=== PATIENT | male | born 1985 | race Caucasian/White ===

== ENCOUNTER 2016-09-23 07:39 | Emergency (ER) | payer OTHER | END 2016-09-23 07:48 | disposition left against medical advice (07) | LOC: CED 07:39 | DX: M54.2 Cervicalgia (principal); R50.9 Fever, unspecified; Z53.8 Procedure and treatment not carried out for other reasons ==

== ENCOUNTER 2016-10-16 12:56 | Inpatient (IN) | payer MEDICAID, OTHER ==
[2016-10-16] MEDS ORDERED: NS 500 ML IV ONE (13:23)
--- NOTE | 2016-10-16 13:29 | UCPHY ---
H & P Time Seen by Provider: 10/16/16 13:01 Patient Type: New HPI/ROS: HPI Neck and chest swelling. 31-year-old male by private vehicle with his girlfriend. This patient reports a 1 month ago he strained his anterior left-sided neck while bowling. He describes this as the sternocleidomastoid area. He reports that he was very uncomfortable and had a difficult time turning his head. He reports that he saw his primary care physician about this he was placed on a muscle relaxer and got better over the next week or so. He reports that about a week ago he noticed that he was having this vague and mild sensation of swelling in the soft tissues of his mid chest and neck area which seemed to be worse when he was waking up in the morning. He has not had any shortness of breath. He denies any chest pain. Has not had a cough. No voice changes. No airway constriction affects. No fever. No other complaints. ROS: Constitutional: No fever, no chills. No weakness. Eyes: No discharge. No changes in vision. ENT: No sore throat. No nasal congestion or rhinorrhea. Respiratory: No cough. As above. Cardiac: As above, no palpitations. Gastrointestinal: No abdominal pain, no vomiting, no diarrhea. Genitourinary: No hematuria. No dysuria or increased frequency with urination. Musculoskeletal: No back pain. No neck pain. No myalgias or arthralgias. Skin: No rashes. Neurological: No headache. No focal weakness or altered sensation. Past medical history: Denies any significant past medical history. He is not on any prescription medications. Social history: Nonsmoker. Here with his girlfriend. Physical Exam: General Appearance: Alert, he appears anxious. This patient is responding to questions appropriately and in full sentences. This patient appears well- hydrated and well-nourished. Eyes: Pupils equal and round no pallor or injection. No lid edema, erythema or injection. ENT, Mouth: Mucous membranes are moist. The pharyngeal tissues are unremarkable. No edema or swelling. No asymmetry suggestive of abscess. No erythema or exudates. No stridor on auscultation of his neck. No Stridor on auscultation of his neck. Upper airway sounds are clear. Respiratory: There are no retractions, lungs are clear to auscultation with good air movement bilaterally. Cardiovascular: Regular rate and rhythm. No murmur. Chest wall is stable on palpation. There is faint and vague edema involving the lower neck and chest with very faint ecchymosis mid chest/mid sternal region. Neurological: Motor sensory function is grossly intact. Cranial nerves are normal. Gait is normal. Skin: Warm and dry, no rashes. Musculoskeletal: Neck is supple and nontender. Extremities are symmetrical. All joints range without pain or impingement. Psychiatric: No agitation. No depression. Database: EKG: EKG time is 1:33 p.m.; EKG shows a narrow complex normal sinus rhythm with a ventricular rate of 75. The MO, QRS, QT intervals are within normal limits. There are no ST-T wave changes indicative of ischemic or injury pattern. No evidence of right heart strain. Interpreted by me. Imaging: Chest x-ray PA and lateral; Large right-sided upper mediastinal mass. Discussed with staff radiologist Dr. Frankie Good. He recommend CT imaging of the head and neck. CT scan of head and neck with IV contrast; significant for large right-sided mediastinal mass with cardiophrenic lymph nodes in cervical lymph nodes. The left IJ is thrombosed from the skull base to the mediastinum. Results were discussed with staff radiologist Dr. Frankie Good. Procedures: Emergency department course: IV placed. He was placed on a monitor. He was started on IV normal saline with 500 cc to be given over the next hour. His vital signs been reviewed. He is moderately hypertensive. Afebrile. Vital signs otherwise unremarkable. 2:30 p.m., patient re-evaluated. Resting comfortably at this time. Results of chest x-ray and blood work discussed with him. Differential diagnosis reviewed. Discussed possible lymphoma. He consented for CT angiogram of his head and neck. 3:15 p.m., discussed case with on-call hospitalist Dr. Finn Christy. He accepts the patient for admission. 3:30 p.m., spoke with oncologist Dr. Ele Tinsley. Case discussed in detail. Regarding the thrombosis of the left internal jugular vein, I discussed anticoagulation with her. She is in agreement with this. Patient will be started on a heparin drip here at the [facility]. 3:35 p.m., discussed case with hospitalist Dr. Finn Christy. Results of CT scan discussed in detail with him. Need for anticoagulation discussed. He is in agreement. He still feels the patient is is okay to go to [address] [place] [address]. 3:50 p.m., patient re-evaluated. He is with his mother and girlfriend at this time. Results of CT scan discussed with all of them. Need for anticoagulation discussed. Plan for transfer to [address] [place] [address] at [facility] discussed. All of their questions were answered. The patient was transferred in stable condition. His remaining emergency department course under my care has been uneventful. Differential Diagnosis: The differential diagnosis on this patient includes but is not limited to superior vena cava syndrome, thromboembolic condition, Pancoast tumor/malignancy , lymphoma. This represents a partial list of diagnoses considered. These considerations are based on history, physical exam, past history, reassessment and diagnostic testing. Smoking Status: Never smoked Constitutional: Initial Vital Signs Temperature (C) 37.0 C 10/16/16 13:07 Heart Rate 82 10/16/16 13:07 Respiratory Rate 18 10/16/16 13:07 Blood Pressure 157/81 H 10/16/16 13:07 O2 Sat (%) 97 10/16/16 13:07 O2 Delivery Mode Room Air Allergies/Adverse Reactions: No Known Allergies Allergy (Unverified 10/16/16 13:07) Home Medications: Medication Instructions Recorded NK [No Known Home Meds] 10/16/16 Medical Decision Making - Data Points Laboratory Results: Laboratory Results 10/16/16 13:40 10/16/16 13:40 Medications Given: Discontinued Medications Allopurinol (Allopurinol) 300 mg PO ONCE ONE Stop: 10/16/16 18:16 Last Admin: 10/16/16 18:45 Dose: 300 mg Heparin Sodium (Porcine) (Heparin Injection) 0 unit IVP EDNOW ONE PRN Reason: Protocol Stop: 10/16/16 15:43 Last Admin: 10/16/16 16:15 Dose: 4,300 ml Heparin Sodium (Porcine) (Heparin Injection) 0 unit IVP ONCE ONE PRN Reason: Protocol Stop: 10/16/16 17:42 Last Admin: 10/16/16 18:44 Dose: Not Given Sodium Chloride (Ns) 500 mls @ 0 mls/hr IV ONCE ONE PRN Reason: As Directed Stop: 10/16/16 13:24 Last Admin: 10/16/16 13:40 Dose: 500 mls Heparin Sodium (Porcine) (Heparin 50 Units/Ml (Premix)) 500 mls @ 0 mls/hr IV EDNOW ONE; Per Protocol PRN Reason: Protocol Stop: 10/16/16 15:43 Last Admin: 10/16/16 16:17 Dose: 500 mls Allopurinol 300 mg/ Sodium (Chloride) 68 mls @ 136 mls/hr IV DAILY DANNIELLE Stop: 04/14/17 17:59 Last Admin: 10/16/16 19:36 Dose: Not Given Lorazepam (Ativan Injection) 0.5 mg IVP EDNOW ONE Stop: 10/16/16 14:32 Last Admin: 10/16/16 14:53 Dose: 0.5 mg Departure - Departure Disposition: [facility] Acute Clinical Impression: Neck swelling, Lymphoma, Thrombosis of left internal jugular vein Condition: Fair - PQRS PQRS Measurement: Not applicable.
--- NOTE | 2016-10-16 13:34 | CPEKG ---
Heart Rate: 75 RR Interval: 800 P-R Interval: 140 QRSD Interval: 86 QT Interval: 392 QTC Interval: 438 P [place]: 68 QRS [place]: 61 T Wave [place]: 54 EKG Severity - BORDERLINE ECG - EKG Impression: SINUS RHYTHM EKG Impression: LVH BY VOLTAGE Electronically Signed By: Kaitlynn Roman 16-Oct-2016 13:48:50
[2016-10-16 13:44] LABS: % IMMATURE GRANULYOCYTES 0.4 % (0.0-1.1); ABSOLUTE IMMATURE GRANULOCYTES 0.02 10^3/uL (0.00-0.10); ADD DIFF? NO; ADD MORPH? NO; ADD SCAN? NO; ATYPICAL LYMPHOCYTE FLAG 10 (0-99); FRAGMENT RBC FLAG 0 (0-99); HEMOGLOBIN 13.5 g/dL (13.7-17.5); LEFT SHIFT FLG 0 (0-99); LIPEMIA HEMOLYSIS FLAG 80 (0-99); MEAN CELL HEMOGLOBIN 29.8 pg (27.9-34.1); MEAN CELL HEMOGLOBIN CONCENTR. 32.9 g/dL (32.4-36.7); MEAN CELL VOLUME 90.5 fL (81.5-99.8); MEAN PLATELET VOLUME 8.5 fL (8.7-11.7); PLATELET CLUMPS FLAG 0 (0-99); PLATELET COUNT 479 10^3/uL (150-400); RED BLOOD CELL COUNT 4.53 10^6/uL (4.40-6.38); RED CELL DISTRIBUTION WIDTH 12.7 % (11.5-15.2)
[2016-10-16 14:03] LABS: ANION GAP 10 mEq/L (8-16); CALCIUM 9.5 mg/dL (8.5-10.4); CARBON DIOXIDE 28 mEq/l (22-31); CHLORIDE 104 mEq/L (97-110); CREATININE 0.7 mg/dL (0.7-1.3); GLOMERULAR FILTRATION RATE > 60; GLUCOSE 125 mg/dL (70-100); POTASSIUM 4.5 mEq/L (3.5-5.2); SODIUM 142 mEq/L (134-144)
--- NOTE | 2016-10-16 14:03 | DX ---
PA and lateral chest - October 16, 2016 History: 31-year-old with chest pain. Comparison: Acromioclavicular joints July 19, 2009. Findings: There is a new large right mediastinal mass. Azygous fissure is noted. There is no pneumoth orax or pleural effusion. Heart size is normal. The bones are normal. Impression: Large mediastinal mass, which could represent lymphoma, teratoma, or other etiology. CT c hest with contrast is recommended for further evaluation. Findings discussed with Dr. Kaitlynn Roman, on October 16, 2016 at 1356 hours.
[2016-10-16] MEDS ORDERED: IOPAMIDOL (ISOVUE-370) 150 ML BTL IV ONE (14:18)
[2016-10-16] MEDS ORDERED: LORazepam 2 MG/ML INJ IVP ONE (14:31)
--- NOTE | 2016-10-16 15:20 | CT ---
CT Pulmonary Angiogram History: Chest mass on radiographs earlier today. Comparison: CT angio neck same day, PA and lateral chest October 16, 2016 at 1341 hours. Technique: Axial contrast-enhanced images were obtained through the chest following the uneventful in travenous administration of 75 mL Isovue-370. Creatinine is 0.7. Multiplanar reformations were perfo rmed through the pulmonary arteries. Dose reduction techniques were utilized. Findings: Assessment of segmental and subsegmental pulmonary arteries is limited by respiratory lor on and bolus timing. There is no visible central pulmonary embolus. There is significant narrowing of the right main pulmonary arteries. There is mass effect from the large anterior mediastinal mass. A trace right pleural effusion is present. There is mild dependent atelectasis. Azygos fissure is noted . There is a heterogeneous 11.8 x 8.9 x 10.9 cm (transverse x craniocaudal) anterior mediastinal mass causing significant mass effect, with central areas of low attenuation suggesting necrosis. An enlar ged 1.5 x 1.4 cm right cardiophrenic lymph node is present (series 2 image 175), with an adjacent mil dly enlarged lymph node and numerous mildly prominent non-pathologically enlarged axillary nodes. The left internal jugular vein is thrombosed. There is limited assessment of the brachiocephalic vein du e to bolus timing and mass effect, with probable thrombosis. Narrowing of the right internal jugular vein is present, with limited contrast opacification of the SVC, likely related to mass effect, with collateral flow via the azygos vein. The aorta is displaced posteriorly, with normal caliber, without dissection. Heart size is upper normal. No aggressive osseous lesions are identified. Visualized str uctures in the upper abdomen are normal. There is subcutaneous edema in the anterior neck and chest. Impression: 1. Large anterior mediastinal mass with central necrosis, most likely related to lymphoma or less lik sulaiman teratoma or thymoma. 2. Pathologically enlarged right cardiophrenic lymph node with scattered additional mildly prominent lymph nodes, suspicious for malignancy 3. Thrombosis of the left internal jugular vein and possible thrombosis of the brachiocephalic vein, which is incompletely visualized due to bolus timing. 4. Severe narrowing of the SVC and probable narrowing of the right subclavian vein. 5. Tiny right pleural effusion. 6. Additional findings as above. Findings discussed with Dr. Kaitlynn Roman, on October 16, 2016 at 1522 hours.
--- NOTE | 2016-10-16 15:30 | CT ---
CT Angiogram Neck History: Chest mass. Comparison: CT angiogram chest same day, PA and lateral chest same day at 1341 hours. Technique: Axial contrast-enhanced images were obtained from the skull base through the thoracic inle t following the uneventful intravenous administration of 75 mL Isovue-370. Multiplanar reformations were performed. Dose reduction techniques were utilized. Findings: There is incomplete visualization of a large anterior mediastinal mass. This causes posteri or displacement of the aortic arch and great vessels. The visible aorta is normal caliber with conven tional three-vessel arch anatomy. The common and internal carotid arteries and vertebral arteries are widely patent with no significant atherosclerosis. The left internal jugular vein is thrombosed thro ughout its visualized length, with thrombus extending superiorly to the sigmoid sinus. The brachiocep halic vein is poorly assessed due to bolus timing. There is narrowing of the SVC, secondary to the ma ss, with dilatation of the right internal jugular vein centrally, without appreciable thrombus. The c entral right subclavian vein appears narrowed. Mild subcutaneous edema is present in the anterior nec k. Numerous mildly prominent cervical lymph nodes are present, suboptimally assessed due to edema and bolus timing. No aggressive osseous lesions are present. Impression: 1. Large anterior superior mediastinal mass suspicious for lymphoma, better characterized with CT nani st from the same day. 2. Thrombosis of the left external jugular vein from the sigmoid sinus to the thoracic inlet with fonseca ited assessment of the brachiocephalic vein due to bolus timing. 3. Numerous mildly prominent cervical lymph nodes. 4. Narrowing of the SVC and right subclavian vein by the superior mediastinal mass. 5. Additional findings as above. Stenoses are calculated using [place] Symptomatic Carotid Endarterectomy Trial (NASCET) criter ia. Findings discussed with Dr. Kaitlynn Roman, on October 16, 2016 at 1522 hours.
[2016-10-16] MEDS ORDERED: HEPARIN/DEXTROSE 500 ML IV ONE (15:42)
[2016-10-16] MEDS ORDERED: HEPARIN 10,000 UNIT/10 ML MDV IVP ONE ×2 (15:42→17:41)
[2016-10-16] MEDS ORDERED: ONDANSETRON DISINTEGRATING 4 MG TAB PO PRN (17:21)
[2016-10-16] MEDS ORDERED: ONDANSETRON 4 MG/2 ML VIAL IVP PRN (17:21)
[2016-10-16] MEDS ORDERED: HEPARIN 10,000 UNIT/10 ML MDV IVP PRN (17:41)
[2016-10-16] MEDS ORDERED: NS IV SCH (18:00)
[2016-10-16] MEDS ORDERED: HEPARIN/DEXTROSE 500 ML IV SCH (18:00)
[2016-10-16] MEDS ORDERED: ALLOPURINOL IV SCH (18:00)
[2016-10-16 18:02] LABS: % IMMATURE GRANULYOCYTES 0.1 % (0.0-1.1); ABSOLUTE IMMATURE GRANULOCYTES 0.01 10^3/uL (0.00-0.10); ADD DIFF? NO; ADD MORPH? NO; ADD SCAN? NO; ATYPICAL LYMPHOCYTE FLAG 0 (0-99); FRAGMENT RBC FLAG 0 (0-99); HEMOGLOBIN 13.7 g/dL (13.7-17.5); LEFT SHIFT FLG 0 (0-99); LIPEMIA HEMOLYSIS FLAG 80 (0-99); MEAN CELL HEMOGLOBIN 29.7 pg (27.9-34.1); MEAN CELL HEMOGLOBIN CONCENTR. 32.6 g/dL (32.4-36.7); MEAN CELL VOLUME 91.1 fL (81.5-99.8); MEAN PLATELET VOLUME 8.6 fL (8.7-11.7); PLATELET CLUMPS FLAG 0 (0-99); PLATELET COUNT 466 10^3/uL (150-400); RED BLOOD CELL COUNT 4.61 10^6/uL (4.40-6.38); RED CELL DISTRIBUTION WIDTH 12.7 % (11.5-15.2)
[2016-10-16] MEDS ORDERED: ZOLPIDEM TARTRATE 5 MG TAB PO PRN (18:12)
[2016-10-16] MEDS ORDERED: ALLOPURINOL 300 MG TAB PO ONE (18:15)
[2016-10-16 18:19] LABS: BILIRUBIN,TOTAL 0.5 mg/dL (0.1-1.4); BILIRUBIN-CONJUGATED 0.4 mg/dL (0.0-0.5); BILIRUBIN-UNCONJUGATED 0.1 mg/dL (0.0-1.1); TOTAL PROTEIN 7.2 g/dL (6.3-8.2); URIC ACID 4.4 mg/dL (3.5-8.5)
[2016-10-16 18:23] LABS: INR 1.09 (0.83-1.16)
[2016-10-16 18:24] LABS: APTT 33.4 SEC (23.0-38.0); FIBRINOGEN 388 mg/dL (214-456)
[2016-10-16 18:36] LABS: PLATELET COUNT 466 10^3/uL (150-400)
[2016-10-16] MEDS: NS 1,000 ML IV SCH (18:46)
[2016-10-16] MEDS: DEXAMETHASONE 4 MG/ML VIAL IVP SCH ×2 (18:57→23:03)
--- NOTE | 2016-10-16 19:16 | GHP ---
[f rep st] HISTORY AND PHYSICAL DATE OF ADMISSION: 10/16/2016 DATE OF EVALUATION: 10/16/2016 CHIEF COMPLAINT: Discoloration/bruising on the chest and recent neck discomfort. HISTORY OF PRESENT ILLNESS: A 31-year-old male with no significant past medical history, who presents after noting some discoloration on the surface of his chest and underlying chest pressure extending from the subcostal area up into his mid-chest. The patient reports having a pressure sensation over the course of the preceding week intermittently. Of note, patient had presented to an outside physician twice in the 2 months preceding this presentation, once with what he felt to be anxiety attack related to the anniversary of his mother' s , and then another presentation with left-sided neck pain which then resolved and then he developed right-sided neck pain. The patient presented today and is reporting new bruising discoloration midsternal with this pressure. Denies any associated shortness of breath with this. Denies any sensation of difficulty swallowing or wheezing. The patient reported an isolated fever that was noted when he was being evaluated for his neck pain, but he reports that that has resolved. He does report intermittent night sweats. Patient does note some swelling of his face at the time of his presentation today and does report that he believes his voice sounds a little bit deeper than it typically does. The patient denies any upper extremity or lower extremity swelling. Denies any dizziness, palpitations, abdominal discomfort, nausea, vomiting, changes in his bowel habits, hematuria, dysuria, or any rashes. PAST MEDICAL HISTORY: None. SOCIAL HISTORY: Negative for tobacco. Intermittent alcohol. No illicit drugs or marijuana. FAMILY HISTORY: Mother 5 years ago from breast cancer. REVIEW OF SYSTEMS: A 10-point review of systems is negative with the exception of that reported in the HPI. PHYSICAL EXAMINATION: VITAL SIGNS: Blood pressure 147/86, heart rate 112, respiratory rate 16, 94% on room air, temperature 37.3. GENERAL: This is a young-appearing male who is anxious, sitting in bed. HEENT: Notable for some swelling of the neck which appear symmetric, as well as periorbital erythema which the patient reports is new. Oropharynx: Tongue is midline. Eyes are anicteric. CARDIAC: Patient is regular rate and rhythm. No murmurs, gallops, or rubs are appreciated. PULMONARY: Good respiratory effort. Clear to auscultation bilaterally. GASTROINTESTINAL: Positive bowel sounds. The abdomen is soft and nontender to palpation in all 4 quadrants. MUSCULOSKELETAL : Negative for any lower extremity edema. LYMPHATICS: No appreciable supraclavicular or axillary lymph nodes are appreciated. NEUROLOGIC: The patient is alert and oriented x3. PSYCHIATRIC: He is quite nervous on interview and examination. DATA: White count is 5.4, hematocrit 41.0 platelet count of 479. D-dimer is 1.67. Sodium 142, creatinine 0.7, glucose is 125, calcium is 9.5. CTA of the chest, which I personally reviewed and interpreted, shows a large anterior mediastinal mass measured by Radiology at 11 x 10 cm. They do note enlarged cardiophrenic lymph nodes. Thrombosis of the left internal jugular is noted with severe narrowing of the SVC. ASSESSMENT AND PLAN: This is a 31-year-old male presenting with complaints of bruising of the anterior chest and chest pressure, found to have a new mediastinal mass. 1. Acute large mediastinal mass, most suspicious for rapidly progressing lymphoma. Have consulted both Oncology as well as Interventional Radiology to initiate diagnostic and treatment plan. Send a battery of labs for the initial laboratory workup for a diagnosis of this mass. Have discuss with IR and will plan for biopsy in am. patient NPO after midnight and nursing with instructions for holding heparin gtt two hours prior to biopsy. 2. Acute Internal jugular vein thrombosis - suspect 2/2 to underlying malignancy - heparin gtt with bolus started upon diagnosis. 3. 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 The patient has been initiated on a heparin drip. After discussion with Oncology, we will begin with anticoagulation, a transthoracic echo, and monitor the patient closely. If he has progression of symptoms, then we will move toward more aggressive intravascular intervention- which has also been reviewed with IR. Oncology optimistic that we can initiate treatment quickly enough after biopsy that we may be able to avoid this type of intervention. 3. Anxiety. The patient is quite anxious, obviously, secondary to this new diagnosis and the rapidity of his admission and initiation of care. Will treat as needed with benzodiazepine. 4. Diet. Keep the patient NPO until General Surgery has evaluated and we have a diagnostic plan, which most certainly will require invasive biopsy. 5. Prophylaxis. Patient is on heparin drip. DISPOSITION: Greater than 2 midnights, as the patient is requiring rapid diagnostic evaluation of this mediastinum mass and initiation of his oncologic plan. I have discussed the case with Dr. Tinsley from Oncology and IR - we will initiate anticoagulation and plan for biopsy in am. /[id number]/MODL MTDD
--- NOTE | 2016-10-16 20:07 | GCON ---
[f rep st] CONSULTATION REFERRING PHYSICIAN: Pat Salmon MD REASON FOR CONSULTATION: A 31-year-old gentleman with newly diagnosed large anterior mediastinal mas s. HISTORY OF PRESENT ILLNESS: The patient is a 31-year-old gentleman in relatively good health up unti l about 2 months ago, when he started to experience pain with deep inspirations. This was in mid Aug and he sought the attention of his PCP. It was thought that due to it being the anniversary of his mother's , this was anxiety-related. Although antianxiety medications did not help much, t his pain eventually went away. A few weeks later, about the first or second week in September, patient went bowling and the next day he woke up with excruciating left neck pain and swelling. He states t hat he also eventually felt right neck pain and again, sought the attention of a primary care provide r and thought it was a neck strain. He denies any obvious swelling at that time. Over the past week or so he reports increased bilateral neck swelling, and a sense of fullness or pressure in the cente r of his chest. He denies any bone pain. Yesterday, he reported a discoloration or bruising on the anterior chest that he did not see before, and he states he can feel a mass under his sternum. Patient denies any weight loss, but he does report about a week worth of night sweats. He also repor ts a fever of 102 that went away on its own. He denies any significant shortness of breath. Current ly, he denies stridor or wheezing. He denies any issues with swallowing or voice hoarseness. His gi rlfriend states that she has noted some redness around his eyes that was not present before. Patient denies any abdominal pain, nausea, vomiting, hemoptysis, lower extremity edema, or neurologic change s. He presented to the emergency room today. Labs were relatively unremarkable with a white blood c ell count of 5.4, hemoglobin 13.5, MCV of 92, platelet count of 479. His D-dimer was 1.67. CMP was l argely unremarkable. Calcium 9.4. Potassium normal at 4.5. Unfortunately, a CTA chest was done santos t showed a large anterior mediastinal mass with central necrosis, pathologically enlarged right cardi ophrenic lymph node with scattered additional mildly prominent lymph nodes. He also was identified a s having a thrombosis in the left internal jugular vein and possible thrombosis of the brachiocephali c vein, which was incompletely visualized due to bolus timing. He has noticeably severe narrowing of SVC and probable narrowing of the right subclavian vein. A tiny right pleural effusion was noted. Patient has been admitted for further workup and evaluation. REVIEW OF SYSTEMS: As per HPI otherwise, 14-point review of systems is negative. PAST MEDICAL HISTORY: None, other than ACL repair. No significant anxiety. FAMILY HISTORY: Mother of breast cancer 5 years ago. Otherwise negative. MEDICATIONS: Takes no known medications on a scheduled basis. SOCIAL HISTORY: No significant alcohol, tobacco or drugs. He has a girlfriend. He lives in the [facility]. ALLERGIES: He has no known drug allergies. PHYSICAL EXAM: VITAL SIGNS: Blood pressure 147/86, pulse of 112 was previously 75, O2 sat 94% on ro om air. He has a temperature of 37.6. GENERAL: He is a young gentleman, not in acute distress, rosendo rt and oriented, is obviously anxious. HEENT: Has some periorbital erythema, but no proptosis. No plethora. NECK: Subtly enlarged bilaterally, but no large internal jugular vein on my exam. Althou gh neck is swollen, I do not feel any palpable obvious anterior cervical lymph nodes. HEART: Tachyc ardic. Do feel like I heard a very soft grade 1 systolic murmur. No obvious rub. CHEST: Clear to auscultation bilaterally. Anterior chest shows some ecchymosis anteriorly right above the sternal jasper ne. ABDOMEN: Soft, nontender. Bowel sounds positive. No enlarged spleen or liver. LOWER EXTREMIT IES: No edema. NEUROLOGIC: Nonfocal. A and O x3. Moving all extremities. LABS AND DATA: As mentioned above. ASSESSMENT AND PLAN: This is a 31-year-old gentleman, admitted with a large anterior mediastinal mas s, also noted to have severe narrowing of the superior vena cava by imaging, as well as acute thrombo sis of left internal jugular vein, and possible thrombosis of brachiocephalic vein. 1. Large anterior mediastinal mass: Will discuss with Surgery to see if they can obtain a biopsy sa cabrera. Options would include a CT-guided biopsy or endobronchial biopsy given location and closest to the airway. Differential diagnosis includes lymphoma, possibly primary mediastinal B-cell lymphoma or Hodgkin lymphoma, or other. Germ cell tumor and thymoma less likely, although checking tumor alyce ers. 2. 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 Evidence-based guidelines for management of SVC syndrome are not available. In the past, SVC synd maritza was considered potentially a life-threatening medical emergency requiring immediate radiation th erapy; however, emergency RT is no longer considered necessary for most patients for several reasons. Current management stresses the importance of accurate histologic diagnosis prior to starting thera py and upfront use of endovenous stents in severely symptomatic patients to provide more rapid relief than can be achieved using RT. Patient has no evidence of stridor due to central airway obstruction or severe laryngeal edema. At this time, I think it is most important to obtain a diagnosis. I melisa l plan on starting him on some steroids given the high likelihood this is lymphoma and possibly relie ve some of his obstructive symptoms. I have discussed with patient and other and internal Medicine t hat if patient has any acute changes, we would need to discuss endovascular stenting emergently. 3. Acute deep venous thrombosis: Obstruction of blood flow through the SVC slows venous return. Th is can result in local irritation or thrombosis in veins of the upper extremities, which he has evide nce of by imaging. Systemic anticoagulation should be strongly considered to limit extension of thro mbus, therefore he has been started on a heparin drip. Will continue to monitor this closely. Due to location, as well as likelihood of lymphoma, I have recommended echocardiogram, as well as oth er labs to include LDH, AFP, beta-hCG, uric acid, DIC panel. Will also check HIV and hepatitis serol ogies. Will start allopurinol, as well as dexamethasone today. Patient will be followed very closel y on telemetry. Will continue to follow this patient along with you daily. /[id number]/MODL
[2016-10-16] MEDS: LORazepam 2 MG/ML INJ IVP PRN (23:02)
[2016-10-17] MEDS: DEXAMETHASONE 4 MG/ML VIAL IVP SCH ×3 (05:12→21:56)
[2016-10-17] MEDS: NS 1,000 ML IV SCH (05:12)
[2016-10-17 06:43] LABS: % IMMATURE GRANULYOCYTES 0.6 % (0.0-1.1); ABSOLUTE IMMATURE GRANULOCYTES 0.03 10^3/uL (0.00-0.10); ADD DIFF? NO; ADD MORPH? NO; ADD SCAN? NO; ATYPICAL LYMPHOCYTE FLAG 0 (0-99); FRAGMENT RBC FLAG 0 (0-99); HEMATOCRIT 40.4 % (40.0-51.0); HEMOGLOBIN 13.4 g/dL (13.7-17.5); LEFT SHIFT FLG 0 (0-99); LIPEMIA HEMOLYSIS FLAG 80 (0-99); MEAN CELL HEMOGLOBIN CONCENTR. 33.2 g/dL (32.4-36.7); MEAN CELL VOLUME 90.6 fL (81.5-99.8); MEAN PLATELET VOLUME 8.7 fL (8.7-11.7); PLATELET CLUMPS FLAG 0 (0-99); PLATELET COUNT 461 10^3/uL (150-400); RED BLOOD CELL COUNT 4.46 10^6/uL (4.40-6.38); RED CELL DISTRIBUTION WIDTH 12.6 % (11.5-15.2)
[2016-10-17 07:02] LABS: ANION GAP 10 mEq/L (8-16); CALCIUM 9.2 mg/dL (8.5-10.4); CARBON DIOXIDE 25 mEq/l (22-31); CHLORIDE 105 mEq/L (97-110); CREATININE 0.6 mg/dL (0.7-1.3); GLOMERULAR FILTRATION RATE > 60; GLUCOSE 125 mg/dL (70-100); POTASSIUM 4.8 mEq/L (3.5-5.2); SODIUM 140 mEq/L (134-144)
[2016-10-17] MEDS ORDERED: ALLOPURINOL IV SCH (09:00)
[2016-10-17] MEDS ORDERED: NS IV SCH (09:00)
[2016-10-17] MEDS ORDERED: FLUMAZENIL 0.5 MG/5 ML MDV IVP ONE (10:33)
[2016-10-17] MEDS ORDERED: NALOXONE HCL 0.4 MG/ML INJ ONE (10:33)
[2016-10-17] MEDS ORDERED: MIDAZOLAM 2 MG/2 ML VIAL ONE (10:33)
[2016-10-17] MEDS ORDERED: fentaNYL 100 MCG/2 ML INJ ONE (10:34)
--- NOTE | 2016-10-17 10:44 | ECHO ---
[id number] + + [address] : : [place] [address] : : [phone] + + Adult Echocardiographic Report + -------+ :Name: MONICA CARVAJAL Aliza Date: 10/17/2016 08:37 AM : : Hospital Admission Number: [id number] Locati on: 381: :: 1985 Gender: Male Height: 71 in : :Age: 31 yrs Race: WH Weight: 160 lb : :Reason For Study: Mediastinal Mass : : BSA: 1.9 meter s2 : :History: No Previous : + -------+ MMode/2D Measurements & Calculations IVSd: 0.74 cm RVDd: 4.4 cm FS: 36.5 % LVOT diam: 2.1 cm LVPWd: 0.98 cm LVIDd: 4.8 cm EDV(Teich): LVOT area: LVIDs: 3.0 cm 105.7 ml 3.6 cm2 ESV(Teich): 35.7 ml EF(Teich): 66.2 % LVLd ap4: 8.4 cm SV(MOD-sp4): EDV(MOD-sp4): 66.0 ml 98.0 ml LVLs ap4: 6.6 cm ESV(MOD-sp4): 32.0 ml EF(MOD-sp4): 67.3 % Normal Measurement Values: + + :LVIDd (3.5-5.7cm) IVSd (0.6-1.1cm) LVPWd (0.6-1.1cm) Aortic Root (2.0-3.7cm)Left Atrium (1.5-4.0cm): :LV Vol(d) (76-115ml) LV Vol(s) (29-48ml) Ejec Fraction (50-65%)PV Mina (0.6- 1.2m/s) TV Mina (0.4-1.0m/s) : :MV E Mina (0.8-1.0m/s)MV A Mina (0.3-1.0m/s)LVOT Mina (0.7-1.2m/s) Asc Ao Mina ( 0.9-1.8m/s) : + + Doppler Measurements & Calculations MV E max mina: MV V2 max: Ao V2 max: LV V1 max: 122.9 cm/sec 129.0 cm/sec 161.5 cm/sec 143.8 cm/sec MV A max mina: MV max PG: Ao max PG: LV V1 max P.8 cm/sec 6.7 mmHg 10.4 mmHg 8.3 mmHg MV E/A: 1.3 MV V2 mean: Ao mean PG: LV V1 mean PG: MV dec time: 103.4 cm/sec 4.3 mmHg 5.1 mmHg 0.20 sec MV mean PG: Ao V2 mean: LV V1 mean: 4.5 mmHg 98.9 cm/sec 107.6 cm/sec MV V2 VTI: 29.9 cmAo V2 VTI: 22.7 cm LV V1 VTI: 23.6 cm MVA(VTI): 2.8 cm2 ELVIN(I,D): 3.7 cm2 ELVIN(V,D): 3.2 cm2 SV(LVOT): 84.5 ml PA V2 max: PI end-d mina: RAP systole: 151.1 cm/sec 84.2 cm/sec 10.0 mmHg PA max P.2 mmHg PA V2 mean: 106.8 cm/sec PA mean P.2 mmHg PA V2 VTI: 27.1 cm Left Ventricle The left ventricle is normal in size and function. There is normal left ventricular wall thickness. Ejection Fraction = 60-65%. Right Ventricle The right ventricle is normal in size and function. The right ventricular systolic function is normal. Atria The left atrial size is normal. Right atrial size is normal. A prominent eustachian valve is noted. The interatrial septum is intact with no evidence for an atrial septal defect. Mitral Valve The mitral valve is normal in structure and function. There is no mitral valve stenosis. There is no mitral regurgitation noted. Tricuspid Valve The tricuspid valve is normal in structure and function. There is no tricuspid stenosis. There is trace tricuspid regurgitation. Aortic Valve The aortic valve is normal in structure and function. Cannot exclude aortic valvular vegetation. There is no aortic stenosis. There is no aortic insufficiency. Pulmonic Valve The pulmonic valve is normal in structure and function. Trace pulmonic valvular regurgitation. Great Vessels The aortic root is normal size. Pericardium/Pleural An extra-pericardial mass is suggested. There is a fat pad seen. Conclusion A complete two-dimensional transthoracic echocardiogram was performed (2D, M-mode, Doppler and color flow Doppler). The left ventricle is normal in size and function. Ejection Fraction = 60-65%. There are no regional wall motion abnormalities. A prominent eustachian valve is noted in the RA. The aortic valve leaftets appears mildy calcified at the commissures. Cannot determine aortic valve morphology. There is thickening and prominence of the tricuspid annulus. There is trace tricuspid regurgitation. Trace pulmonic valvular regurgitation. Cannot excluded valvular vegetations or extrinsic cardiac mass. Consider further imaging with SHAHIDA and possibly gated chest chest CT or cardiac MRI. Final Reading Physician: Amelie Mcrae signed on 10/17/2016 10:43 AM Ordering Physician: Pat Salmon Performed By: Nevaeh Inman
--- NOTE | 2016-10-17 10:54 | HOSPPROG ---
Hospitalist Progress Note Assessment/Plan: * large mediastinal mass * probably lymphoma * will be getting biopsy today * left external jugular vein thrombosis * IV heparin * probably could transition to Lovenox on discharge * superior vena cava syndrome * on steroids * not very symptomatic * seems to be improving * endovascular stenting if worsens Subjective: no new complaints. Does feel less swollen Objective: Vital Signs Temp Pulse Resp BP Pulse Ox 37.1 C 108 H 16 125/75 H 91 L 10/17/16 08:00 10/17/16 08:00 10/17/16 08:00 10/17/16 08:00 10/17/16 08:00 Laboratory Results 10/17/16 06:15 10/17/16 06:15 10/16/16 10/17/16 10/18/16 05:59 05:59 05:59 Intake Total 1350 Balance 1350 PT 14.0 SEC (12.0-15.0) 10/16/16 17:50 INR 1.09 (0.83-1.16) 10/16/16 17:50 - Physical Exam Constitutional: no apparent distress, appears nourished, not in pain Eyes: anicteric sclera, EOMI Ears, Nose, Mouth, Throat: moist mucous membranes, hearing normal, other ( no facial swelling or erythema) Cardiovascular: regular rate and rhythym Respiratory: no respiratory distress Skin: warm Neurologic: AAOx3 Psychiatric: interacting appropriately, not anxious, not encephalopathic, thought process linear ICD10 Worksheet Patient Problems: Problems Problem Status Diagnosed Lymphoma Acute Neck swelling Acute Thrombosis of left internal jugular vein Acute
--- NOTE | 2016-10-17 13:46 | POSTOPPROG ---
Post Op Note Date of Operation: 10/17/16 Surgeon: Larry Jeffrey Draw Fire Operator: makenzie HINDS Anesthesiologist: none Anesthesia: IV Sedation (Versed and Fentanyl) Pre-op Diagnosis: Mediastinal mass Post-op Diagnosis: same Indication: Mediastinal mass Procedure: CT guided mediastinal mass. 18 guage core biopsy x5 Findings: No bleed or pneumothorax Inf/Abcess present in the surg proc area at time of surgery?: No Depth: Organ Space (anterior mediastinum) EBL: Minimal Complications: None Drains: Other (None)
--- NOTE | 2016-10-17 14:40 | CT ---
CT-guided Mediastinal Mass Biopsy Indication: Large anterior mediastinal mass. Consent: The procedure, risks and benefits were discussed with the patient. He agreed to proceed and signed a consent form. Labwork was reviewed. Patient's heparin drip was suspended 1 hour 30 minutes p rior to the procedure. PQRS Cross-Cutting Measure #226: Current tobacco use: No. Technique: Patient placed supine on the CT table and a limited noncontrast scan was performed with a grid placed along the right paramedian anterior chest wall. A right parasternal anterior to posterior trajectory was selected near the right second costochondral cartilage medial to the internal mammary artery. The skin was cleansed with chlorhexidine and sterilely draped. Conscious sedation was initia gal. The skin and deep soft tissues were anesthetized with 1% lidocaine. Utilizing intermittent CT gu idance, a 17-gauge coaxial Bard needle was advanced into the anterior aspect of the mass. Five 18-gau ge spring-loaded core samples were subsequently acquired with the Bard spring-loaded system. Three we re submitted in formalin and two were submitted in Vel's solution for cytology. The needle was remov ed and a limited post biopsy scan was obtained. Patient tolerated the procedure well without immediat e complication. Findings: No pneumothorax or hematoma on postbiopsy imaging. Sedation: 1 mg of Versed and 75 mcg of fentanyl. Start time: 11:44 a.m. Procedure end time: 12:00 p.m . Specimen: 18-gauge core samples. Three submitted in formalin and two submitted in Vel's solution for cytology. Impression: Successful CT-guided biopsy of anterior mediastinal mass. Plan: Post sedation orders and resume heparin drip.
[2016-10-17] MEDS ORDERED: HEPARIN 10,000 UNIT/10 ML MDV IVP PRN (15:42)
[2016-10-17] MEDS ORDERED: HEPARIN 10,000 UNIT/10 ML MDV IVP ONE (15:42)
[2016-10-17] MEDS ORDERED: HEPARIN/DEXTROSE 500 ML IV SCH (16:00)
--- NOTE | 2016-10-17 16:56 | SOAPPROG ---
SOAP Progress Note Assessment/Plan: Assessment/Plan: 31 yo man w newly dx large anterior mediastinal mass aditted w mild SVC Syndrome Sx 1. 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 SVC narrowing - SVC Sx improving w steroids Clinically improving Cont steroids for now No endovascular stent indicated 3. Acute thromboses - on heparin gtt Likely will need femoral vein PORT given acute DVTs of upper extremities and SVC narrowing D/W Dr Chisholm Updated family at bedside Hope to start chemo soon in next couple days 10/17/16 16:52 10/17/16 16:58 Subjective: No acute events Reports decrease neck swelling Objective: Vital Signs Temp Pulse Resp BP Pulse Ox 36.8 C 90 16 124/78 H 92 10/17/16 14:08 10/17/16 14:08 10/17/16 14:08 10/17/16 14:08 10/17/16 14:08 Laboratory Results 10/17/16 06:15 10/17/16 06:15 10/16/16 10/17/16 10/18/16 05:59 05:59 05:59 Intake Total 1350 Balance 1350 PT 14.0 SEC (12.0-15.0) 10/16/16 17:50 INR 1.09 (0.83-1.16) 10/16/16 17:50 Gen - NAD HEENT - decreased periorbital erythema; decreased neck swelling CV - RRR Resp - CTAB, no stridor Abd - soft, NT, ND, BS+ Ext - no sig edema ICD10 Worksheet Patient Problems: Problems Problem Status Diagnosed Lymphoma Acute Neck swelling Acute Thrombosis of left internal jugular vein Acute
[2016-10-17] MEDS ORDERED: IOPAMIDOL (ISOVUE-300) 100 ML BTL IV ONE (18:32)
--- NOTE | 2016-10-17 19:16 | CT ---
Contrast Enhanced CT Scan of the Abdomen and Pelvis Clinical History: 31-year-old male with a large anterior mediastinal mass suspicious for lymphoma, b iopsied earlier this morning. The patient now presents for staging evaluation of the abdomen and pelv is, although has no specific abdominal complaints. Technique: Following oral contrast, and the uncomplicated intravenous administration of 90 mL of Isov ue 300, a multidetector helical CT scan was obtained from the lung bases inferiorly through the proxi mal femora, with images reformatted at 5.00 and 1.50 mm increments, and reviewed at a variety of wind ow and level settings. Parasagittal and paracoronal reconstructed images are reviewed on the workstat ion. The DFOV is 33.5 cm. Dose reduction techniques were utilized. Comparison Study: Contrast-enhanced CT scan of the chest, which included the upper abdomen, dated 10/16. Findings: Contrast-Enhanced CT Scan of the Abdomen: Again, there is right pericardiophrenic lymphadenopathy (se en on series 4, images 1-10). The lung bases are essentially clear. Trace subsegmental atelectasis at the right costophrenic angle is observed. The visualized cardiac chambers and pericardium are unrema rkable. The liver is upper normal in size with a Bryson's right hepatic lobe measuring 17.6 cm in cep halocaudal diameter. There is no focal hepatic mass. There is no intra or extrahepatic bile duct dila tation. There is some dependent density within the gallbladder which could represent some sludge or m icrolithiasis. Sonography would be more definitive. The gallbladder is partially contracted. The panc reatic contour is normal. The spleen, adrenal glands, and kidneys are normal. There is a 10 mm left p eriaortic retroperitoneal lymph node (on series 3, image 40), and a tiny (subcentimeter) low-density lymph node at the aortocaval space (on series 3, image 41). There is no hepatogastric ligament lympha denopathy, or mesenteric lymphadenopathy. There is no ascites. The CT appearance of small and large b owel is notable for some constipation but no obstruction or regional enterocolitis. The abdominal aor ta and the IVC are normal in caliber. The splenic vein, superior mesenteric vein, and the main portal vein are patent. The osseous structures are age-appropriate, with no lytic or blastic lesion. Contrast-Enhanced CT Scan of the Pelvis: The urinary bladder is moderately distended. The prostate gl and and seminal vesicles are unremarkable. The subcutaneous tissues are normal. There is no retroperi toneal or mesenteric adenopathy. Benign-appearing inguinal lymph nodes contain fatty minerva, and are no t enlarged. There is a normal appearance to the retrocecal appendix (seen on series 4, images 186-201 ). Skeletal System: Normal.. Impression: 1. Bryson's right hepatic lobe variation. 2. Normal-sized spleen. 3. There are a couple of paraaortic lymph nodes which measure at or under 10 mm, and are low-suspicio n. However, there is pathologic pericardiophrenic lymphadenopathy (previously referenced on 10/16/2016) , and a PET/CT scan may be of benefit in further evaluating the distribution of disease. 4. Dependent density in the gallbladder, which could be related to microlithiasis or sludge. Sonograp hy would be more definitive.
[2016-10-17] MEDS: ACETAMINOPHEN 325 MG TAB PO PRN (21:57)
[2016-10-17] MEDS: ALLOPURINOL 300 MG TAB PO SCH (21:57)
[2016-10-17] MEDS: LORazepam 2 MG/ML INJ IVP PRN (23:28)
[2016-10-18] MEDS: DEXAMETHASONE 4 MG/ML VIAL IVP SCH ×3 (05:57→20:58)
[2016-10-18] MEDS ORDERED: SODIUM BICARBONATE 10 MEQ/10 ML SYR IVP ONE (07:16)
[2016-10-18] MEDS ORDERED: BUPIVACAINE 0.5% 30 ML SDV ONE (07:16)
[2016-10-18] MEDS ORDERED: LIDOCAINE 1% 30 ML SDV ONE (07:16)
[2016-10-18] MEDS ORDERED: ceFAZolin 2 GM/DEXTROSE 100 ML IV ONE (07:30)
[2016-10-18] MEDS ORDERED: CEFAZOLIN 2 GM/DEXTROSE/100 ML BAG IV ONE (10:47)
--- NOTE | 2016-10-18 10:51 | SOAPPROG ---
SOAP Progress Note Assessment/Plan: Assessment/Plan: 31 yo man w newly dx large anterior mediastinal mass admitted w mild SVC Syndrome Sx 1. 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 SVC narrowing - SVC Sx cont to improve w steroids Cont steroids for now No endovascular stent indicated at this time 3. Acute thromboses - on heparin gtt Need femoral vein PORT given acute DVTs of upper extremities and SVC narrowing D/W Dr Chisholm Updated family at bedside Hope to start chemo soon in next couple days 10/18/16 10:46 Subjective: No acute events noted Pt continues to feel well on steroids Ct abd/pelvis results noted Objective: Vital Signs Temp Pulse Resp BP Pulse Ox 36.9 C 79 16 112/67 92 10/18/16 07:12 10/18/16 07:12 10/18/16 07:12 10/18/16 07:12 10/18/16 07:12 Laboratory Results 10/18/16 04:35 10/17/16 06:15 10/17/16 10/18/16 10/19/16 05:59 05:59 05:59 Intake Total 1350 Balance 1350 PT 14.0 SEC (12.0-15.0) 10/16/16 17:50 INR 1.09 (0.83-1.16) 10/16/16 17:50 Gen - NAD HEENT - anicteric sclera; periorbital erythema decreased CV - RRR Chest - clear Ext - no edema Neuro - nonfocal ICD10 Worksheet Patient Problems: Problems Problem Status Diagnosed Lymphoma Acute Neck swelling Acute Thrombosis of left internal jugular vein Acute
[2016-10-18] MEDS ORDERED: MIDAZOLAM 2 MG/2 ML VIAL ONE (10:58)
[2016-10-18] MEDS ORDERED: PROPOFOL/EMULSION 500 MG/50 ML BOTTLE IV ONE (11:04)
[2016-10-18] MEDS ORDERED: fentaNYL 100 MCG/2 ML INJ ONE ×2 (11:08→12:14)
[2016-10-18 13:52] LABS: HEPATITIS Bs Ab QUANT <5.0 mIU/mL (())
--- NOTE | 2016-10-18 14:18 | DX ---
Fluoroscopy Provided for Port Placement, 12:24 PM Indication: Port placement. Fluoroscopy time: 18.1 seconds. Dose: 3.29 mGy. Technique: Two intraoperative spot films. Findings: Fluoroscopy reveals spot image of the right groin and tip of catheter overlying the right p araspinal distribution. Impression: Fluoroscopy provided for port placement.
--- NOTE | 2016-10-18 14:42 | DX ---
Abdomen, Single View at 1:12 PM Indication: Port placement. Comparison: CT abdomen and pelvis performed one day prior. Findings: A right femoral port has been placed. The tip extends superiorly off the margin of the film in the right paraspinal distribution. The hub of the port overlies the right mid pelvis. Bowel patte rn is normal with residual enteric contrast from CT of the abdomen and pelvis performed one day prior . Impression: New right femoral port. The tip extends off the superior margin of the film.
[2016-10-18] MEDS ORDERED: HYDROCODONE/APAP 5/325 TAB PO PRN (14:48)
[2016-10-18] MEDS: NS 1,000 ML IV SCH (14:55)
[2016-10-18] MEDS: ACETAMINOPHEN 325 MG TAB PO PRN (14:55)
[2016-10-18 15:25] LABS: FINAL DIAGNOSIS See Comments (()); MICROSCOPIC DESCRIPTION See Comments (())
--- NOTE | 2016-10-18 15:53 | POSTOPPROG ---
Post Op Note Date of Operation: 10/18/16 Surgeon: Joss Chisholm Anesthesiologist: MARIETTA Anesthesia: GET(General Endotracheal) Pre-op Diagnosis: MEDIASTINAL MASS PROBABLE LYMPHOMA Post-op Diagnosis: SAME Indication: CHEMO ACCESS Procedure: RIGHT FEMORAL PORT PLACEMENT WITH FLUORO AND ULTRASOUND GUIDANCE Findings: GOOD POSITION AND FLOW Inf/Abcess present in the surg proc area at time of surgery?: No Depth: Deep Incisional (Fascial) EBL: Minimal Complications: 0
[2016-10-18] MEDS ORDERED: ENOXAPARIN 80 MG/0.8 ML SYR SC SCH (16:00)
--- NOTE | 2016-10-18 16:15 | HOSPPROG ---
Hospitalist Progress Note Assessment/Plan: * large mediastinal mass * probably lymphoma * s/p biopsy and bone marrow biopsy * therapy may start tomorrow * s/p femoral vein port placement * left external jugular vein thrombosis * switch to lovenox * superior vena cava syndrome * on steroids * not very symptomatic * seems to be improving * endovascular stenting if worsens Subjective: doing ok Objective: Vital Signs Temp Pulse Resp BP Pulse Ox 36.7 C 94 18 111/76 90 L 10/18/16 15:56 10/18/16 15:56 10/18/16 15:56 10/18/16 15:56 10/18/16 15:56 Laboratory Results 10/18/16 04:35 10/17/16 06:15 10/17/16 10/18/16 10/19/16 05:59 05:59 05:59 Intake Total 1350 500 Output Total 5 Balance 1350 495 PT 14.0 SEC (12.0-15.0) 10/16/16 17:50 INR 1.09 (0.83-1.16) 10/16/16 17:50 - Physical Exam Constitutional: no apparent distress, appears nourished, not in pain Eyes: anicteric sclera, EOMI Ears, Nose, Mouth, Throat: moist mucous membranes, hearing normal Cardiovascular: regular rate and rhythym Respiratory: no respiratory distress Skin: warm Neurologic: AAOx3 Psychiatric: interacting appropriately, not anxious, not encephalopathic, thought process linear ICD10 Worksheet Patient Problems: Problems Problem Status Diagnosed Lymphoma Acute Neck swelling Acute Thrombosis of left internal jugular vein Acute
--- NOTE | 2016-10-18 16:40 | GOP ---
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 PROCEDURE PERFORMED: Right femoral port placement with fluoroscopic and ultrasound guidance. FINDINGS: The patient was found with good position and good flow of the port. DESCRIPTION OF PROCEDURE: The patient was taken to the operating room where he received satisfactory general laryngeal mask anesthesia by Dr. Ayala. He was placed in supine position, prepped and draped in usual sterile fashion. Using ultrasound guidance, the femoral vein was identified. It was then cannulated, and a guidewire was passed up the femoral iliac vein high into the vena cava. A subcu pocket was made in the right lower quadrant. Port tubing was passed from that pocket to the entrance site. A dilator was passed over the guidewire , and then the catheter was introduced through the introducer sheath and dilator system which was then removed. Position was confirmed with fluoroscopy. Good backflow was present. The catheter was flushed with heparin and saline. The port was secured to the fascia with 3-0 Vicryl. The pocket was closed with 3-0 Vicryl for the subcu and 4-0 Prolene subcuticular stitch for the skin. The entrance site was closed with a Prolene mattress suture. Both wounds were infiltrated with 0.5% Marcaine. He tolerated the procedure well. Taken to recovery room in good condition. No complications. /[id number]/MODL MTDD
--- NOTE | 2016-10-18 20:55 | GCON ---
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 He has been experiencing some chest pressure and shortness of sanket ath which is improved with steroid therapy. PAST HISTORY: Negative for any major medical problems.. He felt like he was quite healthy until the se symptoms developed. He has had an ACL repair. No other major surgeries or hospitalizations. REVIEW OF SYSTEMS: Negative for any serious major medical problems including diabetes, asthma, heart disease, epilepsy, peptic ulcer disease or any malignancies. FAMILY HISTORY: Positive for breast cancer. MEDICATIONS: None. ALLERGIES: None. PHYSICAL EXAMINATION: GENERAL: Reveals an alert 31-year-old male who is in some discomfort. VITAL SIGNS: He is afebrile. HEAD AND NECK: Reveals no masses or significant adenopathy, and no bruits. CHEST: Clear. CARDIAC: Regular rhythm. ABDOMEN: Soft, without organomegaly or masses. EXTREMIT IES: Reveal full range of motion. Full pulses. NEUROLOGIC: Appears to be physiologic. IMPRESSION: Mediastinal mass. Likely Hodgkin's or lymphoma, possibility of a germ-cell tumor exists ; but apparently his markers were negative for that. 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 PLAN: Femoral venous access port, since placing one in the chest might be difficult with this large mass in the way. Risks and options have been fully discussed with the patient. He wishes to proceed . /[id number]/MODL
[2016-10-18] MEDS: ALLOPURINOL 300 MG TAB PO SCH (20:58)
[2016-10-18] MEDS: LORazepam 2 MG/ML INJ IVP PRN (23:49)
[2016-10-19] MEDS: ENOXAPARIN 80 MG/0.8 ML SYR SC SCH ×2 (05:17→17:55)
[2016-10-19] MEDS: DEXAMETHASONE 4 MG/ML VIAL IVP SCH ×3 (05:17→21:12)
[2016-10-19 06:17] LABS: % IMMATURE GRANULYOCYTES 0.3 % (0.0-1.1); ABSOLUTE IMMATURE GRANULOCYTES 0.03 10^3/uL (0.00-0.10); ADD DIFF? NO; ADD MORPH? NO; ADD SCAN? NO; ATYPICAL LYMPHOCYTE FLAG 0 (0-99); FRAGMENT RBC FLAG 0 (0-99); HEMATOCRIT 37.1 % (40.0-51.0); LEFT SHIFT FLG 0 (0-99); LIPEMIA HEMOLYSIS FLAG 80 (0-99); MEAN CELL HEMOGLOBIN 29.9 pg (27.9-34.1); MEAN CELL HEMOGLOBIN CONCENTR. 32.3 g/dL (32.4-36.7); MEAN CELL VOLUME 92.5 fL (81.5-99.8); MEAN PLATELET VOLUME 8.8 fL (8.7-11.7); PLATELET CLUMPS FLAG 20 (0-99); PLATELET COUNT 357 10^3/uL (150-400); RED BLOOD CELL COUNT 4.01 10^6/uL (4.40-6.38); RED CELL DISTRIBUTION WIDTH 13.2 % (11.5-15.2)
[2016-10-19 06:24] LABS: ALANINE AMINOTRANSFERASE 29 IU/L (21-72); ALBUMIN 3.3 g/dL (3.5-5.0); ALKALINE PHOSPHATASE 65 IU/L (38-126); ANION GAP 7 mEq/L (8-16); ASPARTATE AMINOTRANSFERASE 19 IU/L (17-59); BILIRUBIN,TOTAL 0.3 mg/dL (0.1-1.4); CALCIUM 8.7 mg/dL (8.5-10.4); CARBON DIOXIDE 26 mEq/l (22-31); CHLORIDE 106 mEq/L (97-110); CREATININE 0.8 mg/dL (0.7-1.3); GLOMERULAR FILTRATION RATE > 60; GLUCOSE 107 mg/dL (70-100); POTASSIUM 4.7 mEq/L (3.5-5.2); SODIUM 139 mEq/L (134-144)
--- NOTE | 2016-10-19 09:16 | SOAPPROG ---
SOAP Progress Note Assessment/Plan: Assessment: 31 yo M with large mediastinal mass and SVC syndrome POD#1 s/p L femoral v port placement Chemo to start today Will check wound tomorrow as patient is sleeping Objective: Vital Signs Temp Pulse Resp BP Pulse Ox 37.1 C 60 17 106/63 93 10/19/16 04:00 10/19/16 04:00 10/19/16 04:00 10/19/16 04:00 10/19/16 04:00 Laboratory Results 10/19/16 05:48 10/19/16 05:48 10/18/16 10/19/16 10/20/16 05:59 05:59 05:59 Intake Total 3973 150 Output Total 930 Balance 3043 150 PT 14.0 SEC (12.0-15.0) 10/16/16 17:50 INR 1.09 (0.83-1.16) 10/16/16 17:50 ICD10 Worksheet Patient Problems: Problems Problem Status Diagnosed Lymphoma Acute Neck swelling Acute Thrombosis of left internal jugular vein Acute
[2016-10-19] MEDS: NS 1,000 ML IV SCH (10:48)
[2016-10-19] MEDS ORDERED: LIDOCAINE/PRILOCAINE 1 EACH CRTUBE TP PRN (11:10)
--- NOTE | 2016-10-19 12:03 | HOSPPROG ---
Hospitalist Progress Note Assessment/Plan: large mediastinal mass - s/p CT guided biopsy of mass and BM biopsy * s/p femoral vein port placement * likely lymphoma, to start chemo today left external jugular vein thrombosis * cont lovenox superior vena cava syndrome * on steroids * not very symptomatic * seems to be improving * endovascular stenting if worsens, not indicated at this time full code dispo - cont inpt Subjective: Pt feels well. Neck and facial swelling much improved. No CP or SOB. He is a bit sad, scared about diagnosis and starting chemo, but has good support. No fevers. TOlerating po well. Objective: Vital Signs Temp Pulse Resp BP Pulse Ox 36.5 C 67 16 133/76 H 96 10/19/16 08:00 10/19/16 08:00 10/19/16 08:00 10/19/16 08:00 10/19/16 08:00 Laboratory Results 10/19/16 05:48 10/19/16 05:48 10/18/16 10/19/16 10/20/16 05:59 05:59 05:59 Intake Total 3973 150 Output Total 930 Balance 3043 150 PT 14.0 SEC (12.0-15.0) 10/16/16 17:50 INR 1.09 (0.83-1.16) 10/16/16 17:50 - Physical Exam Constitutional: no apparent distress Eyes: PERRL Ears, Nose, Mouth, Throat: moist mucous membranes Cardiovascular: regular rate and rhythym Respiratory: no respiratory distress, clear to auscultation Gastrointestinal: normoactive bowel sounds, soft, non-tender abdomen Skin: warm Neurologic: AAOx3 Psychiatric: interacting appropriately ICD10 Worksheet Patient Problems: Problems Problem Status Diagnosed Lymphoma Acute Neck swelling Acute Thrombosis of left internal jugular vein Acute
--- NOTE | 2016-10-19 13:26 | SOAPPROG ---
SOAP Progress Note Assessment/Plan: Assessment: 31 yo man w newly dx large anterior mediastinal mass admitted w mild SVC Syndrome Sx 1. 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 In view of the urgent clinical situation and the fact that his clinical picture fits with this diagnosis, we will initiate chemotherapy with dose adjusted R-EPOCH prior to final path availability. Patient sperm banked this AM prior to chemo initiation. Could not get PET/CT in timely manner CT Abd/pelvis 10/17 shows nothing else concerning Will perform Bone marrow bx in OR w Dr Chisholm today before MediPORT placed Echo reviewed, EF ok - no tamponade physiology Uric acid ok, On allopurinol 2. SVC narrowing - SVC Sx cont to improve w steroids Cont steroids for now No endovascular stent indicated at this time 3. Acute thromboses - on heparin gtt R femoral port placed 10/18/16 Family at bedside Plan: Start dose adjusted R-EPOCH today. Orders written. 10/19/16 13:12 Subjective: Face feels less full. He sperm banked this AM. He is anxious to start therapy. Objective: Vital Signs Temp Pulse Resp BP Pulse Ox 36.5 C 67 16 133/76 H 96 10/19/16 08:00 10/19/16 08:00 10/19/16 08:00 10/19/16 08:00 10/19/16 08:00 Laboratory Results 10/19/16 05:48 10/19/16 05:48 10/17/16 10/18/16 10/19/16 23:59 23:59 23:59 Intake Total 300 2273 1850 Output Total 430 500 Balance 300 1843 1350 PT 14.0 SEC (12.0-15.0) 10/16/16 17:50 INR 1.09 (0.83-1.16) 10/16/16 17:50 Physical Exam - Physical Exam General Appearance: alert Neck: other (mild neck swelling) Respiratory: lungs clear Cardiac/Chest: regular rate, rhythm Abdomen: normal bowel sounds, other (port in R lower abdominal wall) Skin: warm/dry Neuro/Psych: normal mood/affect, oriented x 3 ICD10 Worksheet Patient Problems: Problems Problem Status Diagnosed Lymphoma Acute Neck swelling Acute Thrombosis of left internal jugular vein Acute
[2016-10-19] MEDS: LORazepam 2 MG/ML INJ IVP PRN ×2 (13:27→23:37)
[2016-10-19] MEDS ORDERED: ACETAMINOPHEN 325 MG TAB PO ONE (15:00)
[2016-10-19] MEDS ORDERED: FAMOTIDINE 20 MG/NACL 50 ML IV ONE (15:00)
[2016-10-19] MEDS ORDERED: riTUXimab 700 MG in NS 630 ML IV ONE (15:30)
[2016-10-19] MEDS: ACETAMINOPHEN 325 MG TAB PO PRN (16:15)
[2016-10-19] MEDS: predniSONE 20 MG TAB PO SCH ×2 (16:16→23:38)
[2016-10-19] MEDS: predniSONE 5 MG TAB PO SCH ×2 (16:16→23:42)
[2016-10-19] MEDS ORDERED: PALONOSETRON HCL 0.25 MG/5 ML VIAL IVP ONE (18:00)
[2016-10-19] MEDS: ALLOPURINOL 300 MG TAB PO SCH (21:09)
[2016-10-19] MEDS: ETOPOSIDE IV SCH (21:31)
[2016-10-19] MEDS: VINCRISTINE IV SCH (21:31)
[2016-10-19] MEDS: DOXORUBICIN IV SCH (21:31)
[2016-10-19] MEDS: NS IV SCH (21:31)
[2016-10-20] MEDS: ENOXAPARIN 80 MG/0.8 ML SYR SC SCH ×2 (05:18→18:30)
[2016-10-20] MEDS: DEXAMETHASONE 4 MG/ML VIAL IVP SCH ×3 (05:18→21:58)
[2016-10-20 05:27] LABS: % IMMATURE GRANULYOCYTES 0.8 % (0.0-1.1); ABSOLUTE IMMATURE GRANULOCYTES 0.06 10^3/uL (0.00-0.10); ADD DIFF? NO; ADD MORPH? NO; ADD SCAN? NO; ATYPICAL LYMPHOCYTE FLAG 0 (0-99); FRAGMENT RBC FLAG 0 (0-99); HEMATOCRIT 34.1 % (40.0-51.0); HEMOGLOBIN 11.1 g/dL (13.7-17.5); LEFT SHIFT FLG 0 (0-99); LIPEMIA HEMOLYSIS FLAG 80 (0-99); MEAN CELL HEMOGLOBIN 29.6 pg (27.9-34.1); MEAN CELL HEMOGLOBIN CONCENTR. 32.6 g/dL (32.4-36.7); MEAN CELL VOLUME 90.9 fL (81.5-99.8); MEAN PLATELET VOLUME 8.7 fL (8.7-11.7); PLATELET CLUMPS FLAG 20 (0-99); PLATELET COUNT 290 10^3/uL (150-400); RED BLOOD CELL COUNT 3.75 10^6/uL (4.40-6.38); RED CELL DISTRIBUTION WIDTH 13.2 % (11.5-15.2)
[2016-10-20 05:50] LABS: ALANINE AMINOTRANSFERASE 28 IU/L (21-72); ALBUMIN 2.9 g/dL (3.5-5.0); ALKALINE PHOSPHATASE 54 IU/L (38-126); ANION GAP 8 mEq/L (8-16); ASPARTATE AMINOTRANSFERASE 20 IU/L (17-59); BILIRUBIN,TOTAL 0.3 mg/dL (0.1-1.4); CALCIUM 8.3 mg/dL (8.5-10.4); CARBON DIOXIDE 24 mEq/l (22-31); CHLORIDE 107 mEq/L (97-110); CREATININE 0.6 mg/dL (0.7-1.3); GLOMERULAR FILTRATION RATE > 60; GLUCOSE 125 mg/dL (70-100); POTASSIUM 4.5 mEq/L (3.5-5.2); SODIUM 139 mEq/L (134-144); TOTAL PROTEIN 5.5 g/dL (6.3-8.2)
[2016-10-20] MEDS: predniSONE 5 MG TAB PO SCH ×2 (08:54→20:16)
[2016-10-20] MEDS: predniSONE 20 MG TAB PO SCH ×2 (08:54→20:15)
[2016-10-20] MEDS: LORazepam 2 MG/ML INJ IVP PRN ×2 (08:59→21:58)
--- NOTE | 2016-10-20 13:53 | SOAPPROG ---
SOAP Progress Note Assessment/Plan: Assessment: 31 yo man w newly dx large anterior mediastinal mass admitted w mild SVC Syndrome Sx 1. 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 In view of the urgent clinical situation and the fact that his clinical picture fits with this diagnosis, we will initiate chemotherapy with dose adjusted R-EPOCH prior to final path availability. Patient sperm banked this AM prior to chemo initiation. Could not get PET/CT in timely manner CT Abd/pelvis 10/17 shows nothing else concerning Final path on mediastinal mass and bone marrow biopsy is pending. Echo reviewed, EF ok - no tamponade physiology Uric acid ok, On allopurinol No tumor lysis syndrome at this time 2. SVC narrowing - SVC Sx cont to improve w steroids Cont steroids for now No endovascular stent indicated at this time 3. Acute thromboses - on heparin gtt R femoral port placed 10/18/16 Friends at bedside. Plan: Today is C1 D2 DA-R-EPOCH. Continue steroids Continue Heparin Check final path when available Monitor for tumor lysis Subjective: No new complaints. Neck feels the same. No N/V. Objective: Vital Signs Temp Pulse Resp BP Pulse Ox 37 C 68 16 95/60 L 93 10/20/16 11:56 10/20/16 08:30 10/20/16 08:30 10/20/16 08:30 10/20/16 08:30 Laboratory Results 10/20/16 05:17 10/20/16 05:17 10/18/16 10/19/16 10/20/16 23:59 23:59 23:59 Intake Total 2273 6370 350 Output Total 430 2550 Balance 1843 3820 350 PT 14.0 SEC (12.0-15.0) 10/16/16 17:50 INR 1.09 (0.83-1.16) 10/16/16 17:50 Physical Exam - Physical Exam General Appearance: alert, no apparent distress Neck: other (no change in edema) Respiratory: lungs clear, No crackles, No rales, No rhonchi Cardiac/Chest: regular rate, rhythm Abdomen: normal bowel sounds, non-tender Neuro/Psych: no motor/sensory deficits, alert, normal mood/affect, oriented x 3 ICD10 Worksheet Patient Problems: Problems Problem Status Diagnosed Lymphoma Acute Neck swelling Acute Thrombosis of left internal jugular vein Acute
[2016-10-20 14:24] LABS: LACTATE DEHYDROGENASE 625 IU/L (313-618); URIC ACID 1.2 mg/dL (3.5-8.5)
--- NOTE | 2016-10-20 17:52 | HOSPPROG ---
Hospitalist Progress Note Assessment/Plan: large mediastinal mass - s/p CT guided biopsy of mass and BM biopsy, prelim path B cell lymphoma * s/p femoral vein port placement * likely lymphoma, started chemo yesterday per oncology * monitor for tumor lysis left external jugular vein thrombosis * cont lovenox superior vena cava syndrome * on steroids * swelling of neck/face improved * endovascular stenting if worsens, not indicated at this time full code dispo - cont inpt Subjective: Pt is in better spirits today, more positive, but still scared. His mom of breast cancer recently. Denies CP or SOB. No facial or neck swelling. Objective: Vital Signs Temp Pulse Resp BP Pulse Ox 36.6 C 73 16 116/87 H 933 H 10/20/16 16:30 10/20/16 16:30 10/20/16 16:30 10/20/16 16:30 10/20/16 16:30 Laboratory Results 10/20/16 05:17 10/20/16 05:17 10/19/16 10/20/16 10/21/16 05:59 05:59 05:59 Intake Total 3973 5020 Output Total 930 2050 Balance 3043 2970 PT 14.0 SEC (12.0-15.0) 10/16/16 17:50 INR 1.09 (0.83-1.16) 10/16/16 17:50 - Physical Exam Constitutional: no apparent distress Eyes: PERRL Ears, Nose, Mouth, Throat: moist mucous membranes Cardiovascular: regular rate and rhythym Respiratory: no respiratory distress, clear to auscultation Gastrointestinal: normoactive bowel sounds, soft, non-tender abdomen Skin: warm Neurologic: AAOx3 Psychiatric: interacting appropriately ICD10 Worksheet Patient Problems: Problems Problem Status Diagnosed Lymphoma Acute Neck swelling Acute Thrombosis of left internal jugular vein Acute
[2016-10-20] MEDS: ALLOPURINOL 300 MG TAB PO SCH (20:13)
[2016-10-20] MEDS: DOXORUBICIN IV SCH (21:50)
[2016-10-20] MEDS: ETOPOSIDE IV SCH (21:50)
[2016-10-20] MEDS: VINCRISTINE IV SCH (21:50)
[2016-10-20] MEDS: NS IV SCH (21:50)
[2016-10-21] MEDS: NS 1,000 ML IV SCH ×2 (01:00→20:53)
[2016-10-21] MEDS: LORazepam 2 MG/ML INJ IVP PRN ×2 (03:26→21:41)
[2016-10-21] MEDS: DEXAMETHASONE 4 MG/ML VIAL IVP SCH ×3 (05:49→21:42)
[2016-10-21] MEDS: ENOXAPARIN 80 MG/0.8 ML SYR SC SCH ×2 (05:49→18:23)
[2016-10-21 06:31] LABS: % IMMATURE GRANULYOCYTES 0.5 % (0.0-1.1); ABSOLUTE IMMATURE GRANULOCYTES 0.04 10^3/uL (0.00-0.10); ADD DIFF? NO; ADD MORPH? NO; ADD SCAN? NO; ATYPICAL LYMPHOCYTE FLAG 0 (0-99); FRAGMENT RBC FLAG 0 (0-99); HEMATOCRIT 34.4 % (40.0-51.0); HEMOGLOBIN 11.4 g/dL (13.7-17.5); LEFT SHIFT FLG 0 (0-99); LIPEMIA HEMOLYSIS FLAG 80 (0-99); MEAN CELL HEMOGLOBIN 30.3 pg (27.9-34.1); MEAN CELL HEMOGLOBIN CONCENTR. 33.1 g/dL (32.4-36.7); MEAN CELL VOLUME 91.5 fL (81.5-99.8); PLATELET CLUMPS FLAG 0 (0-99); PLATELET COUNT 328 10^3/uL (150-400); RED BLOOD CELL COUNT 3.76 10^6/uL (4.40-6.38); RED CELL DISTRIBUTION WIDTH 13.2 % (11.5-15.2)
[2016-10-21 06:42] LABS: ALANINE AMINOTRANSFERASE 67 IU/L (21-72); ALKALINE PHOSPHATASE 55 IU/L (38-126); ANION GAP 7 mEq/L (8-16); ASPARTATE AMINOTRANSFERASE 58 IU/L (17-59); BILIRUBIN,TOTAL 0.3 mg/dL (0.1-1.4); CALCIUM 8.5 mg/dL (8.5-10.4); CARBON DIOXIDE 26 mEq/l (22-31); CHLORIDE 105 mEq/L (97-110); CREATININE 0.6 mg/dL (0.7-1.3); GLOMERULAR FILTRATION RATE > 60; GLUCOSE 121 mg/dL (70-100); LACTATE DEHYDROGENASE 681 IU/L (313-618); POTASSIUM 4.5 mEq/L (3.5-5.2); SODIUM 138 mEq/L (134-144); TOTAL PROTEIN 5.6 g/dL (6.3-8.2); URIC ACID 1.3 mg/dL (3.5-8.5)
[2016-10-21] MEDS: predniSONE 20 MG TAB PO SCH ×2 (10:02→20:55)
[2016-10-21] MEDS: predniSONE 5 MG TAB PO SCH ×2 (10:03→20:56)
[2016-10-21] MEDS ORDERED: PANTOPRAZOLE SODIUM 40 MG in NS 100 ML IV SCH (10:30)
--- NOTE | 2016-10-21 12:24 | SOAPPROG ---
SOAP Progress Note Assessment/Plan: Assessment: Assessment: 31 yo man w newly dx large anterior mediastinal mass admitted w mild SVC Syndrome Sx 1. 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 Day 3 R epoch Could not get PET/CT in timely manner CT Abd/pelvis 10/17 shows nothing else concerning Final path on mediastinal mass and bone marrow biopsy is pending. Echo reviewed, EF ok - no tamponade physiology Uric acid ok, On allopurinol No tumor lysis syndrome at this time 2. SVC narrowing - SVC Sx cont to improve w steroids Cont steroids for now No endovascular stent indicated at this time 3. Acute thromboses - on heparin gtt R femoral port placed 10/18/16 Friends at bedside. Plan:Continue R epoch, await path will need gcsf post completion chemo 10/21/16 12:20 Subjective: Feels ok Objective: Vital Signs Temp Pulse Resp BP Pulse Ox 97.7 F 70 18 122/79 H 93 10/21/16 08:00 10/21/16 10:16 10/21/16 10:16 10/21/16 10:16 10/21/16 10:16 Laboratory Results 10/21/16 05:51 10/21/16 05:51 10/20/16 10/21/16 10/22/16 05:59 05:59 05:59 Intake Total 5020 5861 Output Total 2050 4100 Balance 2970 1761 PT 14.0 SEC (12.0-15.0) 10/16/16 17:50 INR 1.09 (0.83-1.16) 10/16/16 17:50 Physical Exam - Physical Exam General Appearance: alert, no apparent distress Neck: non-tender Respiratory: lungs clear Cardiac/Chest: regular rate, rhythm Abdomen: normal bowel sounds, non-tender Extremities: swelling (some swelling arms, l greater than r) ICD10 Worksheet Patient Problems: Problems Problem Status Diagnosed Lymphoma Acute Neck swelling Acute Thrombosis of left internal jugular vein Acute
--- NOTE | 2016-10-21 12:46 | SOAPPROG ---
SOAP Progress Note Assessment/Plan: Assessment/plan : 31 yo M with large mediastinal mass and SVC syndrome s/p L femoral v port placement. Port site is clean. Chemo started. No new orders from surgery. S: No pain. O: gen: sleeping but easily arousable, alert, oriented, nad pulm: no wob ext: port site cdi no erythema 10/21/16 12:44 Objective: Vital Signs Temp Pulse Resp BP Pulse Ox 36.6 C 86 18 122/67 H 93 10/21/16 12:00 10/21/16 12:00 10/21/16 12:00 10/21/16 12:00 10/21/16 12:00 Laboratory Results 10/21/16 05:51 10/21/16 05:51 10/20/16 10/21/16 10/22/16 05:59 05:59 05:59 Intake Total 5020 5861 Output Total 2050 4100 Balance 2970 1761 PT 14.0 SEC (12.0-15.0) 10/16/16 17:50 INR 1.09 (0.83-1.16) 10/16/16 17:50 ICD10 Worksheet Patient Problems: Problems Problem Status Diagnosed Lymphoma Acute Neck swelling Acute Thrombosis of left internal jugular vein Acute
[2016-10-21 13:16] LABS: FINAL DIAGNOSIS See Comments (()); MICROSCOPIC DESCRIPTION See Comments (()); SPECIAL STUDIES See Comments (())
--- NOTE | 2016-10-21 15:51 | HOSPPROG ---
Hospitalist Progress Note Assessment/Plan: # large mediastinal mass - s/p CT guided biopsy of mass and BM biopsy- prelim path B cell lymphoma CT chest( personally reviewed and interpreted) large anterior mediastinal mass with compression of the pulmonary arteries s/p femoral vein port placement- with minimal pain - cont chemo per oncology - monitor for tumor lysis # left external jugular vein thrombosis -cont treatment dosed lovenox # superior vena cava syndrome - swelling of neck/face improved as well as periorbital erythema - cont steroids - endovascular stenting if worsens-not indicated at this time # acute normocytic anemia- suspect related to phlebotomy since the patient's arrival- hemoglobin 11 - continue to follow daily on chemotherapy # full code # diet- regular # dispo - >2MN as requiring emergent chemotherapy for large mediastinal mass an SVC syndrome I have discussed the case with Pharm D- we will initiate IV Protonix secondary to high dose prednisone with chemotherapy Subjective: minimal discomfort with femoral port Objective: Vital Signs Temp Pulse Resp BP Pulse Ox 36.6 C 86 18 122/67 H 93 10/21/16 12:00 10/21/16 12:00 10/21/16 12:00 10/21/16 12:00 10/21/16 12:00 Laboratory Results 10/21/16 05:51 10/21/16 05:51 10/20/16 10/21/16 10/22/16 05:59 05:59 05:59 Intake Total 5020 5861 Output Total 2050 4100 1100 Balance 2970 1761 -1100 PT 14.0 SEC (12.0-15.0) 10/16/16 17:50 INR 1.09 (0.83-1.16) 10/16/16 17:50 - Physical Exam Constitutional: appears nourished Eyes: anicteric sclera Ears, Nose, Mouth, Throat: moist mucous membranes Cardiovascular: regular rate and rhythym Respiratory: no respiratory distress, no rales or rhonchi Gastrointestinal: normoactive bowel sounds, soft, non-tender abdomen Genitourinary: no bladder fullness Skin: warm, normal color Musculoskeletal: No asymmetric calves Neurologic: AAOx3 Psychiatric: interacting appropriately, not anxious Lymph, Heme, Immunologic: no cervical LAD ICD10 Worksheet Patient Problems: Problems Problem Status Diagnosed Lymphoma Acute Neck swelling Acute Thrombosis of left internal jugular vein Acute
[2016-10-21] MEDS: ALLOPURINOL 300 MG TAB PO SCH (20:59)
[2016-10-21] MEDS: DOXORUBICIN IV SCH (21:41)
[2016-10-21] MEDS: NS IV SCH (21:41)
[2016-10-21] MEDS: VINCRISTINE IV SCH (21:41)
[2016-10-21] MEDS: ETOPOSIDE IV SCH (21:41)
[2016-10-22 06:53] LABS: HEMOGLOBIN 11.2 g/dL (13.7-17.5); MEAN CELL HEMOGLOBIN 29.7 pg (27.9-34.1); MEAN CELL HEMOGLOBIN CONCENTR. 32.9 g/dL (32.4-36.7); MEAN CELL VOLUME 90.2 fL (81.5-99.8); RED BLOOD CELL COUNT 3.77 10^6/uL (4.40-6.38); RED CELL DISTRIBUTION WIDTH 13.1 % (11.5-15.2)
[2016-10-22 06:57] LABS: ALANINE AMINOTRANSFERASE 79 IU/L (21-72); ALBUMIN 2.9 g/dL (3.5-5.0); ALKALINE PHOSPHATASE 49 IU/L (38-126); ANION GAP 4 mEq/L (8-16); ASPARTATE AMINOTRANSFERASE 41 IU/L (17-59); BILIRUBIN,TOTAL 0.4 mg/dL (0.1-1.4); CALCIUM 8.3 mg/dL (8.5-10.4); CARBON DIOXIDE 29 mEq/l (22-31); CHLORIDE 105 mEq/L (97-110); CREATININE 0.7 mg/dL (0.7-1.3); GLOMERULAR FILTRATION RATE > 60; GLUCOSE 122 mg/dL (70-100); LACTATE DEHYDROGENASE 551 IU/L (313-618); POTASSIUM 4.7 mEq/L (3.5-5.2); SODIUM 138 mEq/L (134-144); TOTAL PROTEIN 5.4 g/dL (6.3-8.2); URIC ACID 1.6 mg/dL (3.5-8.5)
[2016-10-22] MEDS: ENOXAPARIN 80 MG/0.8 ML SYR SC SCH ×2 (08:16→18:38)
[2016-10-22] MEDS: DEXAMETHASONE 4 MG/ML VIAL IVP SCH ×2 (08:16→14:15)
[2016-10-22] MEDS: predniSONE 20 MG TAB PO SCH ×2 (08:50→22:15)
[2016-10-22] MEDS: predniSONE 5 MG TAB PO SCH ×2 (08:51→22:16)
[2016-10-22] MEDS: PANTOPRAZOLE SODIUM 40 MG TAB PO SCH (08:51)
--- NOTE | 2016-10-22 10:10 | SOAPPROG ---
SOAP Progress Note Assessment/Plan: Assessment: Assessment: 31 yo man w newly dx large anterior mediastinal mass admitted w mild SVC Syndrome Sx 1. Mediastinal mass - . Day 4 R epoch Could not get PET/CT in timely manner. Symptoms better, will check cxr tomorrow. 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 SVC narrowing - SVC Sx cont to improve w steroids Cont steroids for now No endovascular stent indicated at this time 3. Acute thromboses - on heparin gtt R femoral port placed 10/18/16, will start to transition to warfarin, cont lovenox for now Friends at bedside. Plan:Continue R epoch, cxr tomorrow 10/21/16 12:20 10/22/16 10:06 10/22/16 11:08 Subjective: Feels ok Objective: Vital Signs Temp Pulse Resp BP Pulse Ox 97.8 F 67 18 116/73 95 10/22/16 08:20 10/22/16 08:20 10/22/16 08:20 10/22/16 08:20 10/22/16 08:20 Laboratory Results 10/22/16 05:37 10/22/16 05:37 10/21/16 10/22/16 10/23/16 05:59 05:59 05:59 Intake Total 5861 2936 Output Total 4100 2100 Balance 1761 836 PT 14.0 SEC (12.0-15.0) 10/16/16 17:50 INR 1.09 (0.83-1.16) 10/16/16 17:50 Physical Exam - Physical Exam General Appearance: no apparent distress EENT: other (decreased swelling face and arms) Cardiac/Chest: regular rate, rhythm Abdomen: normal bowel sounds ICD10 Worksheet Patient Problems: Problems Problem Status Onset Lymphoma Acute Neck swelling Acute Thrombosis of left internal jugular vein Acute
--- NOTE | 2016-10-22 14:00 | HOSPPROG ---
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 - mass - s/p CT guided biopsy of mass and BM biopsy- surgical path B cell lymphoma- BMBx pending CT chest-large anterior mediastinal mass with compression of the pulmonary arteries CXR ( personally reviewed and interpreted) with large mediastinal mass oxygen saturations 91% on RA s/p femoral vein port placement- with minimal pain - cont chemo per oncology - monitor for tumor lysis - repeat CXR in am # left external jugular vein thrombosis -cont treatment dosed lovenox # superior vena cava syndrome - swelling of neck/face improved minimal periorbital erythema today seems to fluctuate - cont steroids - endovascular stenting if worsens # acute normocytic anemia- suspect related to phlebotomy since the patient's arrival- hemoglobin remains 11 today - continue to follow daily on chemotherapy # full code # diet- regular # dispo - >2MN as requiring emergent chemotherapy for large mediastinal mass an SVC syndrome I have discussed the case with Oncology will continue with current course Subjective: groin pain minimal Objective: Vital Signs Temp Pulse Resp BP Pulse Ox 36.7 C 69 18 128/75 H 91 L 10/22/16 12:05 10/22/16 12:05 10/22/16 12:05 10/22/16 12:05 10/22/16 12:05 Laboratory Results 10/22/16 05:37 10/22/16 05:37 10/21/16 10/22/16 10/23/16 05:59 05:59 05:59 Intake Total 5861 2936 Output Total 4100 2100 Balance 1761 836 PT 14.0 SEC (12.0-15.0) 10/16/16 17:50 INR 1.09 (0.83-1.16) 10/16/16 17:50 - Physical Exam Constitutional: no apparent distress Eyes: anicteric sclera Ears, Nose, Mouth, Throat: moist mucous membranes Cardiovascular: regular rate and rhythym Respiratory: no respiratory distress, no rales or rhonchi Gastrointestinal: normoactive bowel sounds, soft, non-tender abdomen Genitourinary: no bladder fullness Skin: warm, normal color Musculoskeletal: No asymmetric calves Neurologic: AAOx3 Psychiatric: interacting appropriately, not anxious Lymph, Heme, Immunologic: no cervical LAD ICD10 Worksheet Patient Problems: Problems Problem Status Onset Lymphoma Acute Neck swelling Acute Thrombosis of left internal jugular vein Acute
[2016-10-22] MEDS: WARFARIN SODIUM 5 MG TAB PO SCH (16:32)
[2016-10-22] MEDS: ALLOPURINOL 300 MG TAB PO SCH (22:15)
[2016-10-22] MEDS: LORazepam 2 MG/ML INJ IVP PRN (22:30)
[2016-10-22] MEDS: DOXORUBICIN IV SCH (23:15)
[2016-10-22] MEDS: VINCRISTINE IV SCH (23:15)
[2016-10-22] MEDS: ETOPOSIDE IV SCH (23:15)
[2016-10-22] MEDS: NS IV SCH (23:15)
[2016-10-23 05:56] LABS: INR 1.12 (0.83-1.16); PROTIME(PATIENT) 14.3 SEC (12.0-15.0)
[2016-10-23 06:10] LABS: ALANINE AMINOTRANSFERASE 68 IU/L (21-72); ALKALINE PHOSPHATASE 50 IU/L (38-126); ANION GAP 6 mEq/L (8-16); ASPARTATE AMINOTRANSFERASE 24 IU/L (17-59); BILIRUBIN,TOTAL 0.4 mg/dL (0.1-1.4); CALCIUM 8.5 mg/dL (8.5-10.4); CARBON DIOXIDE 28 mEq/l (22-31); CHLORIDE 103 mEq/L (97-110); CREATININE 0.6 mg/dL (0.7-1.3); GLOMERULAR FILTRATION RATE > 60; GLUCOSE 117 mg/dL (70-100); LACTATE DEHYDROGENASE 510 IU/L (313-618); SODIUM 137 mEq/L (134-144); TOTAL PROTEIN 5.5 g/dL (6.3-8.2); URIC ACID 1.8 mg/dL (3.5-8.5)
[2016-10-23] MEDS: PANTOPRAZOLE SODIUM 40 MG TAB PO SCH (08:59)
[2016-10-23] MEDS: predniSONE 5 MG TAB PO SCH ×2 (09:00→21:26)
[2016-10-23] MEDS: predniSONE 20 MG TAB PO SCH ×2 (09:00→21:25)
[2016-10-23] MEDS: ENOXAPARIN 80 MG/0.8 ML SYR SC SCH ×2 (09:00→17:02)
--- NOTE | 2016-10-23 09:32 | SOAPPROG ---
SOAP Progress Note Assessment/Plan: Assessment/plan : 31 yo M with large mediastinal mass and SVC syndrome s/p L femoral v port placement. Post op port check: Port site is clean, functioning. Plan for f/u in about 10 days for suture removal and wound check. Instructions added to d/c plan. S: No pain. O: gen: alert, nad port site R groin cdi, no erythema, minimal swelling 10/23/16 09:31 Objective: Vital Signs Temp Pulse Resp BP Pulse Ox 36.6 C 64 14 87/48 L 95 10/23/16 08:00 10/23/16 08:00 10/23/16 08:00 10/23/16 08:00 10/23/16 08:00 Laboratory Results 10/22/16 05:37 10/23/16 05:20 10/22/16 10/23/16 10/24/16 05:59 05:59 05:59 Intake Total 2936 900 Output Total 2100 Balance 836 900 PT 14.3 SEC (12.0-15.0) 10/23/16 05:20 INR 1.12 (0.83-1.16) 10/23/16 05:20 ICD10 Worksheet Patient Problems: Problems Problem Status Onset Lymphoma Acute Neck swelling Acute Thrombosis of left internal jugular vein Acute
--- NOTE | 2016-10-23 12:23 | SOAPPROG ---
SOAP Progress Note Assessment/Plan: Assessment: Assessment: 31 yo man w newly dx large anterior mediastinal mass admitted w mild SVC Syndrome Sx 1. Mediastinal mass - . Day 5 R epoch Could not get PET/CT in timely manner. Symptoms better, cxr is better. 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 SVC narrowing - SVC Sx cont to improve w steroids Cont steroids for now No endovascular stent indicated at this time 3. Acute thromboses - on heparin gtt R femoral port placed 10/18/16, continue warfarin, cont lovenox for now Friends at bedside. Plan:Finish R Epoch, possibly home tomorrow 10/21/16 12:20 10/22/16 10:06 10/22/16 11:08 10/23/16 12:17 Subjective: Feels well Objective: Vital Signs Temp Pulse Resp BP Pulse Ox 98.5 F 69 16 135/82 H 94 10/23/16 12:00 10/23/16 12:00 10/23/16 12:00 10/23/16 12:00 10/23/16 12:00 Laboratory Results 10/22/16 05:37 10/23/16 05:20 10/22/16 10/23/16 10/24/16 05:59 05:59 05:59 Intake Total 2936 900 Output Total 2100 Balance 836 900 PT 14.3 SEC (12.0-15.0) 10/23/16 05:20 INR 1.12 (0.83-1.16) 10/23/16 05:20 Physical Exam - Physical Exam General Appearance: alert, no apparent distress Respiratory: lungs clear Cardiac/Chest: regular rate, rhythm ICD10 Worksheet Patient Problems: Problems Problem Status Onset Lymphoma Acute Neck swelling Acute Thrombosis of left internal jugular vein Acute
--- NOTE | 2016-10-23 15:07 | HOSPPROG ---
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 - mass - s/p CT guided biopsy of mass and BM biopsy- surgical path B cell lymphoma- BMBx pending CT chest-large anterior mediastinal mass with compression of the pulmonary arteries CXR (personally reviewed and interpreted) shows decreased size of mediastinal mass oxygen saturations 91% on RA s/p femoral vein port placement - cont chemo per oncology - cont monitor for tumor lysis - potential dc tomorrow if tolerates chemo overnight # left external jugular vein thrombosis -cont treatment dosed lovenox and warfarin INR 1.2 # superior vena cava syndrome - swelling of neck/face improved minimal periorbital erythema today seems to fluctuate - cont anticoagulation # acute normocytic anemia- suspect related to phlebotomy since the patient's arrival- hemoglobin remains 11.2 today - continue to follow daily on chemotherapy # full code # diet- regular # dispo - >2MN as requiring emergent chemotherapy for large mediastinal mass an SVC syndrome I have discussed the case with Oncology will Potentially DC tomorrow if tolerates chemotherapy will this evening Subjective: feeling better today Objective: Vital Signs Temp Pulse Resp BP Pulse Ox 36.9 C 69 16 135/82 H 94 10/23/16 12:00 10/23/16 12:00 10/23/16 12:00 10/23/16 12:00 10/23/16 12:00 Laboratory Results 10/22/16 05:37 10/23/16 05:20 10/22/16 10/23/16 10/24/16 05:59 05:59 05:59 Intake Total 2936 900 Output Total 2100 Balance 836 900 PT 14.3 SEC (12.0-15.0) 10/23/16 05:20 INR 1.12 (0.83-1.16) 10/23/16 05:20 - Physical Exam Constitutional: appears nourished Eyes: anicteric sclera Ears, Nose, Mouth, Throat: moist mucous membranes Cardiovascular: regular rate and rhythym Respiratory: no respiratory distress, no rales or rhonchi Gastrointestinal: normoactive bowel sounds, soft, non-tender abdomen Genitourinary: no bladder fullness Skin: warm, normal color Musculoskeletal: No asymmetric calves Neurologic: AAOx3 Psychiatric: interacting appropriately, not anxious Lymph, Heme, Immunologic: no cervical LAD ICD10 Worksheet Patient Problems: Problems Problem Status Onset Lymphoma Acute Neck swelling Acute Thrombosis of left internal jugular vein Acute
[2016-10-23 16:45] VITALS: RESP 18
[2016-10-23] MEDS: WARFARIN SODIUM 5 MG TAB PO SCH (17:03)
[2016-10-23] MEDS ORDERED: CYCLOPHOSPHAMIDE IV ONE (18:30)
[2016-10-23] MEDS ORDERED: NS IV ONE (18:30)
[2016-10-23] MEDS: ALLOPURINOL 300 MG TAB PO SCH (21:26)
[2016-10-23] MEDS: LORazepam 2 MG/ML INJ IVP PRN (21:49)
[2016-10-24] MEDS ORDERED: FILGRASTIM-SNDZ 300 MCG/0.5 ML SYR SC SCH
[2016-10-24] MEDS: ENOXAPARIN 80 MG/0.8 ML SYR SC SCH (05:52)
[2016-10-24 06:03] LABS: HEMATOCRIT 35.1 % (40.0-51.0); HEMOGLOBIN 11.9 g/dL (13.7-17.5); MEAN CELL HEMOGLOBIN 30.1 pg (27.9-34.1); MEAN CELL HEMOGLOBIN CONCENTR. 33.9 g/dL (32.4-36.7); MEAN CELL VOLUME 88.6 fL (81.5-99.8); RED BLOOD CELL COUNT 3.96 10^6/uL (4.40-6.38); RED CELL DISTRIBUTION WIDTH 12.6 % (11.5-15.2)
[2016-10-24 06:40] LABS: ALANINE AMINOTRANSFERASE 64 IU/L (21-72); ALBUMIN 2.9 g/dL (3.5-5.0); ALKALINE PHOSPHATASE 50 IU/L (38-126); ANION GAP 7 mEq/L (8-16); ASPARTATE AMINOTRANSFERASE 20 IU/L (17-59); BILIRUBIN,TOTAL 0.7 mg/dL (0.1-1.4); CALCIUM 8.4 mg/dL (8.5-10.4); CARBON DIOXIDE 29 mEq/l (22-31); CHLORIDE 101 mEq/L (97-110); CREATININE 0.6 mg/dL (0.7-1.3); GLOMERULAR FILTRATION RATE > 60; GLUCOSE 110 mg/dL (70-100); SODIUM 137 mEq/L (134-144); TOTAL PROTEIN 5.4 g/dL (6.3-8.2)
[2016-10-24] MEDS: PANTOPRAZOLE SODIUM 40 MG TAB PO SCH (08:41)
[2016-10-24 08:44] VITALS: BP 117/78; PULSE 63; TEMP 97.7; O2SAT 95
--- NOTE | 2016-10-24 11:09 | HOSPPROG ---
Hospitalist Progress Note Assessment/Plan: #Mediastinal mass: s/p 5 day R-epoch #Acute thromboses: heparin gtt, coumadin Subjective: no N/V/D Objective: Vital Signs Temp Pulse Resp BP Pulse Ox 36.5 C 63 18 117/78 95 10/24/16 08:00 10/24/16 08:00 10/24/16 08:00 10/24/16 08:00 10/24/16 08:00 Laboratory Results 10/24/16 06:00 10/24/16 06:00 10/23/16 10/24/16 10/25/16 05:59 05:59 05:59 Intake Total 900 2492 Balance 900 2492 PT 14.3 SEC (12.0-15.0) 10/23/16 05:20 INR 1.12 (0.83-1.16) 10/23/16 05:20 - Physical Exam Constitutional: no apparent distress Eyes: PERRL Ears, Nose, Mouth, Throat: moist mucous membranes, hearing normal Cardiovascular: regular rate and rhythym, no murmur, rub, or gallop Respiratory: no respiratory distress, no rales or rhonchi Gastrointestinal: normoactive bowel sounds, soft, non-tender abdomen Genitourinary: no bladder fullness Skin: warm Musculoskeletal: other (port in place, no erythema) Neurologic: AAOx3, CN II-XII Intact Psychiatric: interacting appropriately ICD10 Worksheet Patient Problems: Problems Problem Status Onset Lymphoma Acute Neck swelling Acute Thrombosis of left internal jugular vein Acute
--- NOTE | 2016-10-24 13:17 | GDS ---
[f rep st] DISCHARGE SUMMARY DISCHARGE DIAGNOSES: 1. Newly diagnosed mediastinal large B-cell lymphoma. 2. Left external jugular vein thrombosis. 3. Superior vena cava syndrome. 4. Normocytic anemia. CONSULTATIONS: Surgery, Oncology. PROCEDURES: 1. Port placement. 2. CT-guided biopsy of mass. 3. Bone marrow biopsy. 4. Echocardiogram 10/16/2016. LV is normal size and function. EF is 60% to 65%. There are no reg ional wall motion abnormalities. Trace TR, trace LA. HISTORY OF PRESENT ILLNESS: The patient is a 31-year-old male, with no significant past medical his tory, who presented after discoloration on his chest and chest pressure, extending from the subcosta l area up to his mid chest. He reports having pressure over the course of the preceding week interm ittently. He had presented to an outside doctor twice in the past 2 months, with similar symptoms. At that time, he thought it was due to an anxiety attack related to the anniversary of his mother's . On the day of presentation, he reported new bruising over the mid sternum. He denied any s hortness of breath. He has had intermittent night sweats. He has had some swelling of the face as well. HOSPITAL COURSE BY PROBLEM: 1. Newly diagnosed mediastinal large B-cell lymphoma: This was diagnosed on CT. He underwent a CT guided biopsy and bone marrow biopsy. Status post femoral vein port placement. Patient completed 5 days of R-CHOP. He is to follow up with Oncology tomorrow for an INR check as well as Neulasta. 2. Left external jugular vein thrombosis: Continue bridging Lovenox and Coumadin until INR is 2-3. He will follow up for an INR tomorrow. 3. Superior vena cava. Continue anticoagulant coagulation. 4. Normocytic anemia. No evidence of acute bleeding. 5. Anxiety: Intermittent p.r.n. Ativan. DISPOSITION: Patient is stable for discharge. FOLLOWUP: 1. Dr. Correa with Oncology. 2. INR. /[id number]/MODL
--- NOTE | 2016-10-24 14:12 | SOAPPROG ---
SOAP Progress Note Assessment/Plan: Assessment: Assessment: 31 yo man w newly dx large anterior mediastinal mass admitted w mild SVC Syndrome Sx 1. Mediastinal mass - . Day 6 R epoch Could not get PET/CT in timely manner. Symptoms better, cxr is better. 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 SVC narrowing - SVC Sx cont to improve w steroids Cont steroids for now No endovascular stent indicated at this time 3. Acute thromboses - on heparin gtt R femoral port placed 10/18/16, continue warfarin, cont lovenox for now Friends at bedside. Plan:home today on lovenox, warfarin, and 7 days gcsf, follow up [facility] 10/2810/21/16 12:20 10/22/16 10:06 10/22/16 11:08 10/23/16 12:17 10/24/16 14:11 Subjective: Feels well Objective: Vital Signs Temp Pulse Resp BP Pulse Ox 97.7 F 63 18 117/78 95 10/24/16 08:00 10/24/16 08:00 10/24/16 08:00 10/24/16 08:00 10/24/16 08:00 Laboratory Results 10/24/16 06:00 10/24/16 06:00 10/23/16 10/24/16 10/25/16 05:59 05:59 05:59 Intake Total 900 2492 Balance 900 2492 PT 14.3 SEC (12.0-15.0) 10/23/16 05:20 INR 1.12 (0.83-1.16) 10/23/16 05:20 ICD10 Worksheet Patient Problems: Problems Problem Status Onset Lymphoma Acute Neck swelling Acute Thrombosis of left internal jugular vein Acute
[2016-10-25 12:35] LABS: BANDING METHODS See Comments
== END 2016-10-24 14:13 | disposition home or self-care (01) | DRG 841 ==
LOC: CED 12:56 → CEDHOLD 15:11 → F3E 17:00 → F1N 10-18 10:48
PROVIDERS: ADMIT Student in an Organized Health Care Education/Training Program; ATTEND Internal Medicine
PROC: 0WBC3ZX Excision of Mediastinum, Percutaneous Approach, Diagnostic (ICD-10-PCS; principal; 2016-10-17 12:15)
PROC: 02HV33Z Insertion of Infusion Device into Superior Vena Cava, Percutaneous Approach (ICD-10-PCS; 2016-10-18)
PROC: 07DR3ZX Extraction of Iliac Bone Marrow, Percutaneous Approach, Diagnostic (ICD-10-PCS; 2016-10-18)
PROC: 0JHL0XZ Insertion of Tunneled Vascular Access Device into Right Upper Leg Subcutaneous Tissue and Fascia, Open Approach (ICD-10-PCS; 2016-10-18)
PROC: 3E03305 Introduction of Other Antineoplastic into Peripheral Vein, Percutaneous Approach (ICD-10-PCS; 2016-10-19)
DX: C83.32 Diffuse large B-cell lymphoma, intrathoracic lymph nodes (principal); I82.C12 Acute embolism and thrombosis of left internal jugular vein; I87.1 Compression of vein; D64.9 Anemia, unspecified; F41.9 Anxiety disorder, unspecified
CPT/HCPCS: 70498-PO; 71020-PO; 71275-PO; 80048-PO; 80076-PO; 84550-PO; 84702-90; 85025-PO; 85060-90; 85378-PO; 85520-90; 85610-PO; 88184-90; 88185-91; 88237-90; 88262-90; 96361-PO; 96365-PO; 96375-PO; C1788; G0463-PO; G0472; J0690; J1100; J1200; J1644; J1650; J2250; J2310; J2469; J2704; J3010; J9000; J9070; J9181; J9310; J9370; Q5101-ZA; Q9967